=== PATIENT | female | born 1965 | race Caucasian/White ===

== ENCOUNTER 2024-06-09 07:31 | Emergency (ER) | payer OTHER ==
--- OUTSIDE RECORDS SUMMARY | 2024-06-09 07:35 | XMS REPORT | Continuity of Care Document ---
Author Name Unknown Address [address] [facility] [address] [place] [address] [facility] thconnect Address [address] [facility] [address] [place] [address] Care Team Providers Care Pest Control Applicator Name Role Phone Pcp, Patient Does Not Have A Primary Care Physic myrna FOG_A_Provider Attending Clinician Unavailable Toy Saul Attending Clinician Unavailable Cherrie Quintana MD Attending Clinician [phone] CHERRIE QUINTANA Attending Clinician Unavailabl e Doctor Unassigned, [place] Attending Clinician U navailable FOG_A_Provider Admitting Clinician Unavailable Toy Saul Admitting Clinician Unavailable Payers Payer Name Policy Type Policy Number Effective Date Expirati on Date Source [facility] ([facility]) [id number] 2022 00:00:00 Problems Condition Name Condition Details Condition Category Status Onset Date Resolution Date Last Treatment Date Treating Clinician Comments Source Anxiety Anxiety Problem Active 2023-08 0-08 00:00: 00 [facility] Hip joint prosthesis present Hip Joint Prosthesis Present Problem Active 3-13 00:00: 00 [facility] Osteoarthr itis of left hip joint Osteoarthr itis of Left Hip Joint Problem Active 2021-08 1-10 00:00: 00 [facility] Pain of left hip joint Pain of Left Hip Joint Problem Active 2021-08 00:00: 00 [facility] No known active problems No known active problems Disease [facility] Allergies, Adverse Reactions, Alerts Allergy Name Allergy Type Status Severity Reaction(s) Onset Date Inactive Date Treating Clinician Comments Source No Known Allergie s DA Active U 09-09 00:00: 00 [facility] Tramadol Allergy to substanc e Active [facility] NO KNOWN ALLERGIE S Drug Class Active [facility] Social History Social Habit Start Date Stop Date Quantity Comments Source Exposure to SARS-CoV-2 (event) 2022-06-22 00:00:00 2022-07-02 09:47:00 Not sure [facility] Sex Assigned At 1965 00:00:00 1965 00:00:00 [facility] Smoking Status Start Date Stop Date Source Former Smoker [facility] Tobacco smoking consumption unknown [facility] Medications Ordered Medication Name Filled Medication Name Start Date Stop Date Current Medication? Ordering Clinician Indication Dosage Frequency Signature (SIG) Comments Components Source No known medications 2021-08 09:59: 13 No No known medication s [facility] tramadol 50 mg tablet Take 1 tablet(s) EVERY 12 HOURS by oral route as needed for pain. tramadol 50 mg tablet Take 1 tablet(s) EVERY 12 HOURS by oral route as needed for pain. No tramadol 50 mg tablet Take 1 tablet(s) EVERY 12 HOURS by oral route as needed for pain. [facility] aspirin 81 mg tablet,barbara yed release Take 1 tablet twice a day by oral route. aspirin 81 mg tablet,barbara yed release Take 1 tablet twice a day by oral route. No 1 BID aspirin 81 mg tablet,del ayed release Take 1 tablet twice a day by oral route. [facility] diclofenac sodium 75 mg tablet,barbara yed release Take one tablet by mouth twice a day after finishing 5 days of Ketorolac diclofenac sodium 75 mg tablet,barbara yed release Take one tablet by mouth twice a day after finishing 5 days of Ketorolac No diclofenac sodium 75 mg tablet,del ayed release Take one tablet by mouth twice a day after finishing 5 days of Ketorolac [facility] doxycycline hyclate 100 mg capsule Take 1 capsule twice a day by oral route for 7 days. doxycycline hyclate 100 mg capsule Take 1 capsule twice a day by oral route for 7 days. No doxycyclin e hyclate 100 mg capsule Take 1 capsule twice a day by oral route for 7 days. [facility] Hibiclens 4 % topical liquid Apply 1 application every day by topical route as directed for 5 days. Hibiclens 4 % topical liquid Apply 1 application every day by topical route as directed for 5 days. No 1applic ation(s ) Q1D Hibiclens 4 % topical liquid Apply 1 applicatio n every day by topical route as directed for 5 days. [facility] ketorolac 10 mg tablet Take 1 tablet every 6 hours by oral route for 5 days. ketorolac 10 mg tablet Take 1 tablet every 6 hours by oral route for 5 days. No ketorolac 10 mg tablet Take 1 tablet every 6 hours by oral route for 5 days. [facility] mupirocin 2 % topical ointment APPLY A SMALL AMOUNT TO EACH NOSTRIL DAILY STARTING 5 DAYS PRIOR TO SURGERY mupirocin 2 % topical ointment APPLY A SMALL AMOUNT TO EACH NOSTRIL DAILY STARTING 5 DAYS PRIOR TO SURGERY No mupirocin 2 % topical ointment APPLY A SMALL AMOUNT TO EACH NOSTRIL DAILY STARTING 5 DAYS PRIOR TO SURGERY [facility] Aleve Alewillie No [facility] tizanidine 4 mg tablet Take 1 tablet(s) EVERY 8 HOURS by oral route, as needed for muscle spasm tizanidine 4 mg tablet Take 1 tablet(s) EVERY 8 HOURS by oral route, as needed for muscle spasm No tizanidine 4 mg tablet Take 1 tablet(s) EVERY 8 HOURS by oral route, as needed for muscle spasm [facility] tramadol 50 mg tablet Take 1 tablet(s) EVERY 6-8 HOURS by oral route as needed for pain. tramadol 50 mg tablet Take 1 tablet(s) EVERY 6-8 HOURS by oral route as needed for pain. No tramadol 50 mg tablet Take 1 tablet(s) EVERY 6-8 HOURS by oral route as needed for pain. [facility] tizanidine 4 mg tablet Take 1 tablet(s) EVERY 8 HOURS by oral route, as needed for muscle spasm tizanidine 4 mg tablet Take 1 tablet(s) EVERY 8 HOURS by oral route, as needed for muscle spasm No tizanidine 4 mg tablet Take 1 tablet(s) EVERY 8 HOURS by oral route, as needed for muscle spasm [facility] tramadol 50 mg tablet Take 1 tablet(s) EVERY 12 HOURS by oral route as needed for pain. tramadol 50 mg tablet Take 1 tablet(s) EVERY 12 HOURS by oral route as needed for pain. No tramadol 50 mg tablet Take 1 tablet(s) EVERY 12 HOURS by oral route as needed for pain. [facility] gabapentin 300 mg capsule gabapentin 300 mg capsule No gabapentin 300 mg capsule [facility] Advil Advil No Advil [facility] tramadol 50 mg tablet Take 1 tablet(s) EVERY 8-12 HOURS by oral route as needed for pain. tramadol 50 mg tablet Take 1 tablet(s) EVERY 8-12 HOURS by oral route as needed for pain. No tramadol 50 mg tablet Take 1 tablet(s) EVERY 8-12 HOURS by oral route as needed for pain. [facility] Hibiclens 4 % topical liquid Apply 1 application every day by topical route as directed for 5 days. Hibiclens 4 % topical liquid Apply 1 application every day by topical route as directed for 5 days. No 1applic ation(s ) Q1D Hibiclens 4 % topical liquid Apply 1 applicatio n every day by topical route as directed for 5 days. [facility] mupirocin 2 % topical ointment APPLY A SMALL AMOUNT TO EACH NOSTRIL DAILY STARTING 5 DAYS PRIOR TO SURGERY mupirocin 2 % topical ointment APPLY A SMALL AMOUNT TO EACH NOSTRIL DAILY STARTING 5 DAYS PRIOR TO SURGERY No mupirocin 2 % topical ointment APPLY A SMALL AMOUNT TO EACH NOSTRIL DAILY STARTING 5 DAYS PRIOR TO SURGERY [facility] Vital Signs Vital Name Observation Time Observation Value Comments S ource BP Systolic 2024-06-06 00:00:00 134 mm[Hg] [facility] BMI (Body Mass Index) 2024-06-06 00:00:00 26.7 kg/m2 [facility] Body Weight 2024-06-06 00:00:00 160.4 [lb_av] [facility] BP Diastolic 2024-06-06 00:00:00 74 mm[Hg] [facility] Height 2024-06-06 00:00:00 65 [in_i] [facility] Systolic blood pressure 2022-07-02 15:06:00 130 mm[Hg] [facility] Diastolic blood pressure 2022-07-02 15:06:00 87 mm[Hg] [facility] Heart rate 2022-07-02 15:06:00 99 /min [facility] Oxygen saturation in Arterial blood by Pulse oximetry 2022-07-02 15:06:00 95 /min [facility] Body height 2022-07-02 14:58:00 162.6 cm [facility] Body weight 2022-07-02 14:58:00 84.46 kg [facility] BMI 2022-07-02 14:58:00 31.96 kg/m2 [facility] Procedures Procedure Date / Time Performed Performing Clinician Source CT, chest + abdomen + pelvis, w/wo contrast 2024-06-06 00:00:00 [facility] RADEX PELVIS 1/2 VIEWS 2022-11-10 00:00:00 [facility] Total Replacement of Left [facility]22-08-30 [facility] 2022-07-09 00:00:00 [facility] Total Replacement of Left Hip Joint 1922-09-15 00:00:00 [facility] Ankle Surgery [facility] Foot Surgery [facility] Hand Surgery [facility] Tonsillectomy [facility] Vascular Surgery [facility] Encounters Start Date/Time End Date/Time Encounter Type Admission Type Attending Clinicians Care Facility Care Department Encounter ID Source 2024-06-06 00:00:00 2024-06-06 00:00:00 SUMIT Alba: [address], [place] [address] , Ph. [facility] [id number] [facility] 2022-11-10 00:00:00 2022-11-10 00:00:00 Diane Quiroz PA: [address] [place] [address] , Ph. [phone] [facility] [place] [facility] [place] [id number] [facility] 2022-11-06 00:00:00 2022-11-06 00:00:00 Outpatient FOG_A_Provi hang [facility] AOSM [id number] [facility] 2022-11-06 00:00:00 2022-11-06 00:00:00 Outpatient FOG_A_Provi hang AOSM AOSM [id number] [facility] 2022-09-28 00:00:00 2022-09-28 00:00:00 Outpatient FOG_A_Provi hang AOSM AOSM [id number] [facility] 2022-09-28 00:00:00 2022-09-28 00:00:00 Toy Saul MD: [id number] [place] [address] , Ph. [phone] [facility] [place] [facility] [place] [id number] [facility] 2022-09-15 07:08:00 2022-09-16 14:29:00 Inpatient Toy Hayward [facility] [id number] [facility] 2022-09-11 00:00:00 2022-09-11 00:00:00 Outpatient FOG_A_Provi hang AOSM AOSM [id number] [facility] 2022-09-11 00:00:00 2022-09-11 00:00:00 Outpatient FOG_A_Provi hang AOSM AOSM [id number] [facility] 2022-09-11 00:00:00 2022-09-11 00:00:00 Outpatient FOG_A_Provi hang AOSM AOSM [id number] [facility] 2022-09-09 15:55:00 2022-09-09 15:55:00 Outpatient Toy Saul [facility] [id number] [facility] 2022-08-17 00:00:00 2022-08-17 00:00:00 Outpatient FOG_A_Provi hang AOSM AOSM [id number] [facility] 2022-08-17 00:00:00 2022-08-17 00:00:00 Outpatient FOG_A_Provi hang AOSM AOSM [id number] [facility] 2022-07-31 00:00:00 2022-07-31 00:00:00 Outpatient FOG_A_Provi hang AOSM AOSM [id number] [facility] 2022-07-09 00:00:00 2022-07-09 00:00:00 Outpatient FOG_A_Provi hang AOSM AOSM [id number] [facility] 2022-07-09 00:00:00 2022-07-09 00:00:00 SUMIT Lim: [address] [facility] [address], [place] [address] , Ph. [phone] [facility] [place] [facility] [place] [id number] [facility] 2022-07-06 00:00:00 2022-07-06 00:00:00 Outpatient FOG_A_Provi hang AOSM AOSM [id number] [facility] 2022-07-02 10:00:00 2022-07-02 12:31:57 Office Visit Cherrie Quintana [facility] 1..840.114 [id number] [facility] 2022-07-02 10:00:00 2022-07-02 12:31:57 Outpatient R CHERRIE QUINTANA [facility] [id number] [facility] 2022-07-02 00:00:00 2022-07-02 00:00:00 Letter (Out) Doctor Unassigned, [place] [facility] 1..840.114 [id number] [facility] Results Test Description Test Time Test Comments Results Result Co mments Source SPECIMEN COMMENT: POD #1HGB [id number] 06:23:00* Test Item Value Reference Range Interpretation Comme nts HEMOGLOBIN (test code = HGB) 10.5 g/dL 12-16 L HEMATOCRIT (test code = HCT) 31.7 % 37-47 L SPECIMEN COMMENT: POD #1Hemoglobin and Hematocrit panel - [id number] 02:36:00* Test Item Value Reference Range Interpretation Comme nts hemoglobin (test code = hemoglobin) 10.5 g/dL 12-16 L hematocrit (test code = hematocrit) 31.7 % 37-47 L performing lab: (test code = performing lab:) [facility] metabolic [id number] 02:36:00* Test Item Value Reference Range Interpretation Comme nts sodium (test code = sodium) 138 mmol/L 136-145 potassium (test code = potassium) 4.6 mmol/L 3.5-5.1 chloride (test code = chloride) 101.0 mmol/L 98-107 carbon dioxide (test code = carbon dioxide) 28.3 mmol/L 21-32 glucose (test code = glucose) 154 mg/dL 70-110 H blood urea nitrogen (test co de = blood urea nitrogen) 11 mg/dL 7-18 glomerular filtration rate ( test code = glomerular filtration rate) 86.1 >60 creatinine (test code = creatinine) 0.79 mg/dL 0.55-1.30 calcium (test code = calcium) 8.3 mg/dL 8.2-10.1 performing lab: (test code = performing lab:) [facility]- XR PELVIS 1/2 [id number] 16:35:00 [facility] 1965 Sex: F Patient Name: CECI VIZCAINO SAVANNAH Unit No: [id number] EXAMS: CPT CODE: [id number] XR PELVIS 1/2 VIEWS 84846 INTRAOPERATIVE LEG LENGTH FILM COMMENT: COMPARISON: No prior exams available. In progress left hip replacement is noted. AP portable left hip COMMENT: The patient is status post joint replacement which is articulating normally. at 1635 Reported and signed by: Adi Hernandez MD CC: Toy Saul MD Technologist: JONG JARA ARRT Transcribed D/ (4497) BrynnJCL [facility] NAME[facility] [address] [facility] PHYS: Toy Daniels MD : 1965 AGE: 57 SEX: F [place], [place] [address] LOC: Y.324 A PHONE #: [phone] EXAM DATE: 09/15/2022 STATUS: ADM IN FAX #: [phone] RAD #: D/C DT PAGE 1 Signed Report Patient Name: CECI VIZCAINO SAVANNAH Unit No: [id number] EXAMS: CPT CODE: [id number] XR PELVIS 1/2 VIEWS 69402 (Continued) Orig Print D/T: S: 09/15/2022 (1639) [facility] NAME: CECI VIZCAINO SAVANNAH [address] [facility] PHYS: Toy Daniels MD : 1965 AGE: 57 SEX: F [place], [place] [address] LOC: Y.324 A PHONE#: [phone] EXAM DATE: 09/15/2022 STATUS: ADM IN FAX #: [phone] RAD #: D/C DT PAGE 2 Signed Report- XR PELVIS 1/2 VIEWS 2022-09-15 16:35:00 [facility] 1965 Sex: F Patient Name: CECI VIZCAINO SAVANNAH Unit No: [id number] EXAMS: CPT CODE: [id number] XR PELVIS 1/2 VIEWS 82445 INTRAOPERATIVE LEG LENGTH FILM COMMENT: COMPARISON: No prior exams available. In progress left hip replacement is noted. AP portable left hip COMMENT: The patient is status post joint replacement whichis articulating normally. at 1635 Reported and signed by: Adi Hernandez MD CC: Toy Saul MD Technologist: JONG JARA ARRT Transcribed D/ (9373) Dora [facility] NAME: QUANTICOCECI SAVANNAH [address] [place] [address] PHYS: Toy Daniels MD : 1965 AGE: 57 SEX: F [place] [address] LOC: Y.324 A PHONE #: [phone] EXAM DATE: 09/15/2022 STATUS: ADM IN FAX #: [phone] RAD #: D/C DT PAGE 1 Signed Report Patient Name: CECI VIZCAINO Unit No: [id number] EXAMS: CPT CODE: [id number] XR PELVIS 1/2 VIEWS 52702 (Continued) Orig Print D/T: S: 09/15/2022 (1639) [facility] NAME: CECI VIZCAINO SAVANNAH [address] [facility] PHYS: Toy Dnaiels MD : 1965 AGE: 57 SEX: F [place], [place] [address] LOC: Y.324 A PHONE#: [phone] EXAM DATE: 09/15/2022 STATUS: ADM IN FAX #: [phone] RAD #: D/C DT PAGE 2 Signed ReportCOMPREHENSIVE METABOLIC [id number] 11:53:00* Test Item Value Reference Range Interpretation Comme nts SODIUM (test code = NA) 140 mmol/L 136-145 N POTASSIUM (test code = K) 4.6 mmol/L 3.5-5.1 N CHLORIDE (test code = CL) 102.0 mmol/L 98-107 N CARBON DIOXIDE (test code = CO2) 26.1 mmol/L 21-32 N GLUCOSE (test code = GLU) 107 mg/dL 70-110 N BLOOD UREA NITROGEN (test code = BUN) 12 mg/dL 7-18 N GLOMERULAR FILTRATION RATE (test code = GFR) 97.9 >60 The Glomerular Filtration Rate is a calculated parameterbased on serum Creatinine, patient age and sex. GFR valuesless than 60 mL/min/1.73 square meters are indicative ofChronic Kidney Disease. Values less than 15 mL/min/1.73square meters indicate Kidney failure. The calculation forGFR is based on the CKD-EPI (2020) calculation. This formulais race indifferent and is the recommended formula for GFRby the National Kidney Foundation for Adults.The GFR will not calculate if the sex is unknown or if thepatient's age is <18 years. CREATININE (test code = CREAT) 0.71 mg/dL 0.55-1.30 N TOTAL PROTEIN (test code = PROT) 7.2 g/dL 6.4-8.2 N ALBUMIN (test code = ALB) 3.9 g/dL 3.4-5.0 N GLOBULIN (test code = GLOB) 3.3 g/dL 2.2-4.2 N ALBUMIN/GLOBULIN RATIO (test code = A/G) 1.2 0.7-2.0 N CALCIUM (test code = CA) 8.9 mg/dL 8.2-10.1 N BILIRUBIN TOTAL (test code = BILT) 0.20 mg/dL 0.2-1.00 N SGOT/AST (test code = AST) 23.0 U/L 15-37 N SGPT/ALT (test code = ALT) 34.0 U/L 12-78 N ALKALINE PHOSPHATASE TOTAL (test code = ALKP) 59 U/L 46-116 N CBC W/AUTO [id number] 11:45:00* Test Item Value Reference Range Interpretation Comme nts WHITE BLOOD CELL (test code = WBC) 10.2 K/mm3 5.8-11.0 N RED BLOOD CELL (test code = RBC) 4.85 M/mm3 4.2-5.4 N HEMOGLOBIN (test code = HGB) 13.8 g/dL 12-16 N HEMATOCRIT (test code = HCT) 41.5 % 37-47 N MEAN CELL VOLUME (test code = MCV) 86 fL 80-98 N MEAN CELL HGB (test code = MCH) 28.5 pg 27-34 N MEAN CELL HGB CONCENTRATION (test code = MCHC) 33.3 g/dL 30.8-34.1 N RED CELL DISTRIBUTION WIDTH (test code = RDW) 14.2 % 11-16 N PLT (test code = PLT) 456 K/mm3 130-400 H MEAN PLATELET VOLUME (test c ode = MPV) 10.1 fL 8.9-12.1 N NEUTROPHIL % (test code = NT%) 50.6 % 45-70 N LYMPHOCYTE % (test code = LY%) 34.8 % 20-40 N MONOCYTE % (test code = MO%) 10.7 % 3-10 H EOSINOPHIL % (test code = EO%) 2.5 % 1-5 N BASOPHIL % (test code = BA%) 0.5 % 0.0-1.1 N NEUTROPHIL # (test code = NT#) 5.14 K/mm3 2.00-7.50 N LYMPHOCYTE # (test code = LY#) 3.53 K/mm3 1.50-4.00 N MONOCYTE # (test code = MO#) 1.09 K/mm3 0.2-0.8 H EOSINOPHIL # (test code = EO#) 0.25 K/mm3 0.04-0.4 N BASOPHIL # (test code = BA#) 0.05 K/mm3 0.02-0.10 N MANUAL DIFF REQUIRED (test c ode = MDIFF) NO MANUAL DIFF NUCLEATED RED BLOOD CELL (te st code = NRBC) 0 % 0-0 N CBC W Auto Differential panel - [id number] 10:41:00* Test Item Value Reference Range Interpretation Comme nts white blood cell (test code = white blood cell) 10.2 K/mm3 5.8-11.0 red blood cell (test code = red blood cell) 4.85 M/mm3 4.2-5.4 hemoglobin (test code = hemoglobin) 13.8 g/dL 12-16 hematocrit (test code = hematocrit) 41.5 % 37-47 mean cell volume (test code = mean cell volume) 86 fL 80-98 mean cell HGB (test code = m [place] cell HGB) 28.5 pg 27-34 mean cell HGB concentration (test code = mean cell HGB concentration) 33.3 g/dL 30.8-34.1 red cell distribution width (test code = red cell distribution width) 14.2 % 11-16 plt (test code = plt) 456 K/mm3 130-400 H mean platelet volume (test c ode = mean platelet volume) 10.1 fL 8.9-12.1 neutrophil % (test code = neutrophil %) 50.6 % 45-70 lymphocyte % (test code = lymphocyte %) 34.8 % 20-40 monocyte % (test code = mono cyte %) 10.7 % 3-10 H eosinophil % (test code = eosinophil %) 2.5 % 1-5 basophil % (test code = baso deepti %) 0.5 % 0.0-1.1 neutrophil # (test code = neutrophil #) 5.14 K/mm3 2.00-7.50 lymphocyte # (test code = lymphocyte #) 3.53 K/mm3 1.50-4.00 monocyte # (test code = mono cyte #) 1.09 K/mm3 0.2-0.8 H eosinophil # (test code = eosinophil #) 0.25 K/mm3 0.04-0.4 basophil # (test code = baso deepti #) 0.05 K/mm3 0.02-0.10 manual diff required (test c ode = manual diff required) no manual diff nucleated red blood cell (te st code = nucleated red blood cell) 0 % 0-0 performing lab: (test code = performing lab:) [facility] - Serum or [id number] 10:41:00* Test Item Value Reference Range Interpretation Comme nts sodium (test code = sodium) 140 mmol/L 136-145 potassium (test code = potassium) 4.6 mmol/L 3.5-5.1 chloride (test code = chloride) 102.0 mmol/L 98-107 carbon dioxide (test code = carbon dioxide) 26.1 mmol/L 21-32 glucose (test code = glucose) 107 mg/dL 70-110 blood urea nitrogen (test co de = blood urea nitrogen) 12 mg/dL 7-18 glomerular filtration rate ( test code = glomerular filtration rate) 97.9 >60 creatinine (test code = creatinine) 0.71 mg/dL 0.55-1.30 total protein (test code = t otal protein) 7.2 g/dL 6.4-8.2 albumin (test code = albumin) 3.9 g/dL 3.4-5.0 globulin (test code = globulin) 3.3 g/dL 2.2-4.2 albumin/globulin ratio (test code = albumin/globulin ratio) 1.2 0.7-2.0 calcium (test code = calcium) 8.9 mg/dL 8.2-10.1 bilirubin total (test code = bilirubin total) 0.20 mg/dL 0.2-1.00 SGOT/AST (test code = SGOT/AST) 23.0 U/L 15-37 SGPT/ALT (test code = SGPT/ALT) 34.0 U/L 12-78 alkaline phosphatase total ( test code = alkaline phosphatase total) 59 U/L 46-116 performing lab: (test code = performing lab:) [facility] Center[facility] resistant Staphylococcus aureus [Presence] in Specimen by Organism specific [id number] 10:41:00* Test Item Value Reference Range Interpretation Comme nts MRSA surveillance screen (te st code = MRSA surveillance screen) see below performing lab: (test code = performing lab:) [facility] PCR surveillance [id number] 10:41:00 * Test Item Value Reference Range Interpretation Comme nts mssa PCR surveillance screen (test code = mssa PCR surveillance screen) see below performing lab: (test code = performing lab:) [facility] Notes Date/Time Note Provider Source 2022-09-16 09:17:00 [facility] Clinical Note REPORT#:[id number] REPORT STATUS: Signed DATE:09/16/22 TIME: 916 PATIENT: CECI VIZCAINO WILLIAMSON UNIT #: [id number] [facility] AGE: 57 SEX: F ATTEND: Toy Saul MD ADM AUTHOR: Jah Sorensen MD * ALL edits or amendments must be made on the electronic/computer document * Clinical Note Note: [facility] Jah Franz M.D. (cell text [phone]) Assessment/Plan 1.) Anemia of acute blood loss- .Hgb 10.5, asymptomatic. 2.) S/p Left ROSALIO- .acute multi-modal pain control and followup. Anticoagulation as per Dr. Saul. 3.) OsteoArthritis- .continue on Rx. * OK for DISCHARGE per Internal Medicine. Prior Events/Overnight: Uneventful. Chief Complaint: No significant complaints. Objective Vital Signs Date Temp Pulse Resp B/P B/P Mean Pulse Ox FiO2 09/15-09/16 96.3-98.6 77-101 12-20 103-153/56-84 76.9-99.8 94-100 24-32 Gen: Alert, oriented, in mild discomfort Neck: No Masses, No Thyromegaly- CV: Regular Rate Rhythm / Edema- no significant Resp: Clear To Ascultation / Normal Respiratory Effort ABD: NonTender / NonDistended MS/Skin: No sign of compartment syndrome / +ankle DF/PF Other: thigh soft, drain out Labs/X-ray: Laboratory Tests: 09/166 Chemistry Sodium (136 - 145 mmol/L) 138 Potassium (3.5 - 5.1 mmol/L) 4.6 Chloride (98 - 107 mmol/L) 101.0 Carbon Dioxide (21 - 32 mmol/L) 28.3 BUN (7 - 18 mg/dL) 11 Creatinine (0.55 - 1.30 mg/dL) 0.79 Glomerular Filtr Rate (>60) 86.1 Glucose (70 - 110 mg/dL) 154 H Calcium (8.2 - 10.1 mg/dL) 8.3 Hematology Hgb (12 - 16 g/dL) 10.5 L Hct (37 - 47 %) 31.7 L Jah Franz M.D. at 1052 RPT #:[id number] END OF RE[facility]22-[facility] 08:48:00 [facility]) Discharge Summary REPORT#:[id number] REPORT STATUS: Signed DATE:09/16/22 TIME: 0848 PATIENT: CECI VIZCAINO [place] UNIT #: [id number] ROOM/BED: [address] : 63 AGE: 57 SEX: F ATTEND: Toy Saul MD ADM AUTHOR: Diane Quiroz * ALL edits or amendments must be made on the electronic/computer document * General Information Date of admission: Observation Start Date: 09/15/22 Date of admission: 09/15/22 Discharge date: 09/16/22 Admission diagnosis: Left hip osteoarthritis Discharge diagnosis: same Hospital course: The patient underwent the procedure without incident. Findings were significant for degenerative disease of the hip. The patient was hemodynamically and medically monitored during the post op period. Anticoagulation was instituted for post op DVT prophylaxis. The patient was progressively able to tolerate PO pain medications and the appropriate diet. PT was instituted, with a progressive ability to ambulate and performed exercises. The patient was eventually deemed stable and safe for discharge. Despite factors which projected a longer hospital stay, the patient fulfilled criteria for earlier than expected discharge, including control of pain, early mobilization with PT and stable hemodynamic status. At discharge the patient was comfortable with a controlled pain level. There were no chest or abdominal symptoms present. Discharge physical exam demonstrated stable vitals and no acute distress. The patient had an intact dressing with no significant drainage and no calf tenderness. There were no neurologic or vascular deficits or changes from the preop states. Consultants: internal medicine Pt. condition on discharge: stable Allergies: Allergies: No Known Allergies (Coded, 09/09/22) Med Rec Med Rec Discharge meds: Stop taking the following medications: IBUPROFEN (ADVIL) 200 MG TAB 200 MILLIGRAM ORAL EVERY 6 HOURS NEEDED. as needed for PAIN Continue taking these medications: ASPIRIN (ASPIRIN) 81 MG TAB.CHEW 81 MILLIGRAM ORAL DAILY. ACETAMINOPHEN (TYLENOL) 325 MG TAB 325 MILLIGRAM ORAL EVERY 6 HOURS NEEDED. as needed for PAIN MULTIVITAMIN (MULTIPLE VITAMIN) 1 TAB TAB 1 TABLET ORAL DAILY. GABAPENTIN (NEURONTIN) 300 MG CAP 300 MILLIGRAM ORAL THREE TIMES A DAY. as needed for SPASM [CBD OIL] 1,000 MILLIGRAM ORAL EVERY OTHER DAY Treatments Procedures Treatments Procedures: Procedure: Left total hip arthroplasty Lab: Chemistry last 24 hrs: 09/16 0236 Chemistry Sodium (136 - 145 mmol/L) 138 Potassium (3.5 - 5.1 mmol/L) 4.6 Chloride (98 - 107 mmol/L) 101.0 BUN (7 - 18 mg/dL) 11 Creatinine (0.55 - 1.30 mg/dL) 0.79 Glucose (70 - 110 mg/dL) 154 H Hematology last 24 hrs: 09/16 0236 Hematology Hgb (12 - 16 g/dL) 10.5 L Hct (37 - 47 %) 31.7 L Discharge Instructions PCP )( Discharge to: Home/Self Care Discharge Instructions Additional Discharge Routines: Attending Follow-Up, Wound/Dressing Care )( Diet: Resume Home Diet/Feeds )( Weight monitoring: Not Required )( Activity: As Tolerated )( Wound/dressing care: Do not submerge incision, Leave dressing in place, OK to shower tomorrow Prescriptions: e-prescribe Rx drug database reviewed: yes Follow-up Appointments Attending Physician: Attending Physician: Toy Saul MD Attending physician follow up timeframe: In 1-2 weeks at 0849 at 1159 [facility] [place] #:[id number] END OF REPORT [facility] 2022-09-15 17:07:00 [facility] ([facility]) Clinical Note REPORT#:[id number] REPORT STATUS: Signed DATE:09/15/22 TIME: 1707 PATIENT: CECI VIZCAINO WILLIAMSON UNIT #: [id number] ROOM/BED: [address] : 63 AGE: 57 SEX: F ATTEND: Toy Saul MD ADM AUTHOR: Jah Sorensen MD * ALL edits or amendments must be made on the electronic/computer document * Clinical Note Note: [facility] Jah Franz MD (cell text [phone]) Internal Medicine Consult at request of : Dr. Toy Saul. Chief Complaint: .hip pain HPI: 57yo F is now s/p Left Total Hip Arthroplasty (ROSALIO) by Dr. Saul. Ms. Vizcaino relates years of progressive left hip pain (recently severe), worse with activity, and popping crunchy with restricted motion at times in quality. She has failed conservative management. Comorbidities: see below. PmHx: .OsteoArthritis, back pain ALLERGY: Allergies: No Known Allergies (Coded, 09/09/22) Home Medications: Home Medications: ASPIRIN 81 MG PO DAILY IBUPROFEN (ADVIL) 200 MG PO Q6H PRN PRN PAIN ACETAMINOPHEN (TYLENOL) 325 MG PO Q6H PRN PRN PAIN MULTIVITAMIN (MULTIPLE VITAMIN) 1 TAB PO DAILY GABAPENTIN (NEURONTIN) 300 MG PO TID PRN SPASM [CBD OIL] 1,000 MG PO QODAY SgHx: .Ankle, foot and hand surgery SHx: Tob: quit 09/2019 FHx: .No significant hx of DVT/PE. Alcohol: ocassional Drugs: none Lives: with . . Vitals: Vital Signs: Date Time Temp Pulse Resp B/P B/P Pulse O2 O2 Flow FiO2 Mean Ox Delivery Rate 09/15 1615 98 Nasal 1 24 cannula 09/15 1522 98.1 77 16 116/74 88.4 98 Nasal cannula 09/15 1220 100 Nasal 3 32 cannula 09/15 1206 96.3 77 14 117/78 91.2 100 Nasal cannula 09/15 1145 78 20 109/57 100 Nasal 3 cannula 09/15 1130 87 20 115/56 100 Nasal 3 cannula 09/15 1116 Nasal 3 cannula 09/15 1115 83 12 125/68 98 Nasal 3 cannula 09/15 1102 Simple mask 09/15 1100 82 16 139/75 98 Room air 09/15 1050 97.3 101 14 153/72 98 Simple mask 09/15 0730 98.1 83 20 136/71 94 Room air Gen: Alert, in mild discomfort. EYE: Nl lids conjunctiva. ENT: Nl ears Nose, nl lips,. Neck: Supple, nl thyroid, No masses. CV: Regular Rate Rhythm, no heave or significant murmur. Edema- none RESP: Clear to Auscultation, normal Respiratory effort. ABD: Soft, NonDistended,. LYM: No significant cervical lymphadenopathy. MS: No sign of compartment syndrome, thigh soft, hip dressing dry, drain in place NEURO: Nonfocal, grossly normal sensation of LE, +Ankle DF/PF . . Preop Labs(09/09/22): CBC:. Hgb 13.8, Plt 456, CHEM: Na 140, K 4.6, Cr 0.71 (eGFR 98%), . Ekg: NSR, nonspecific TW abnormaility . (medium to high risk of complications or morbidity) (major surgery) (IV sedative, meds) . Assessment Plan 1.) Anemia of Acute Blood Loss- .will recheck tomorrow. 2.) S/p Left ROSALIO- .acute multi-modal pain control and followup. Anticoagulation as per Dr. Saul. 3.) OsteoArthritis- .continue on Rx. . Jah Franz M.D. Thanks! . . . . . G8417 BMI documented as above normal parameters and a f/u plan is documented G9903 - Patient screened for tobacco use AND identified as a tobacco non-user 1123F - ACP disscussion - default code status while at [facility]. at 2114 RPT #:[id number] END OF REPORT [facility] 2022-09-15 10:26:00 [id number] [facility] [address] [place] [id number] PATIENT NAME: CECI VIZCAINO ADMIT DATE: 09/15/22 ACCOUNT NO: [id number] ROOM NO: Y.324 AGE: 57 REPORT TYPE: OPERATIVE REPORT SEX: F ADMITTING PHYSICIAN:Toy Saul MD ATTENDING PHYSICIAN:Toy Saul MD OPERATION DATE: 09/15/2022 PREOPERATIVE DIAGNOSIS: Left hip osteoarthritis. POSTOPERATIVE DIAGNOSIS: Left hip osteoarthritis, M17.12. OPERATIVE PROCEDURES PERFORMED: 1. Computer-assisted imageless left total hip arthroplasty, 63098. 2. 07441. IMPLANTS UTILIZED: DePuy total hip system, size 52 mm Gription acetabular cup, 1-08/31 neck, both the acetabular and femoral components were pressfit. ANESTHESIA: General. ESTIMATED BLOOD LOSS: Less than 30 mL. SURGEON: Toy Saul MD STRUCTURAL DESIGN ENGINEER: SUMIT Quiroz. OPERATIVE FINDINGS: As above. SURGICAL SPECIMENS SENT: None. CLINICAL INDICATIONS: Ms. Vizcaino is a pleasant 57-year-old female from [place], [place], who has been having progressive and severe pain above the left hip for the past 10 years. Pain is currently disabling in nature. Her pain has been refractory to extensive nonoperative intervention. Due to her severe disability and lack of response to nonoperative treatment, she is admitted for ____. PROCEDURE IN DETAIL: Ms. Vizcaino was brought in ____ she was placed in supine position on the OR table. Routine monitors were established. General anesthesia was delivered. After satisfactory induction of general anesthesia, the patient was placed in the right lateral decubitus position per Ms. Quiroz and pulses were checked and noted to be patent x4. The left hip was then circumferentially prepped and draped in the usual sterile fashion per Ms. Quiroz. A standard anterolateral Dooley approach was performed. Iliotibial band divided in line for the skin incision. The abductors were taken sharply off the insertion of the greater trochanter. An anterior capsulotomy was performed. Femoral head was dislocated anteriorly. The femoral neck was resected 12 mm proximal to the lesser trochanter as per preoperative templating. PATIENT NAME: CECI VIZCAINO The labrum was excised circumferentially from the acetabulum and circumferential acetabular retractors were placed. Sequential reaming was performed to a size 51 mm reamer. Two percutaneous pins were then placed in the superior aspect of the crest and the OrthAlign guide was placed and the hip was registered. Utilizing realtime computer guidance, the acetabular component was placed in the 40 degrees of abduction and 15 degrees of anteversion. A neutral polyethylene insert was then placed into the cup. ____ reduced with a 36 mm head, 1-1/2 neck. Restorationism of offset and leg lengths were noted clinically. No impingement was seen. Intraoperative x-rays confirmed orthodoxy of leg length and offset with optimal positioning of the components. The hip was then dislocated and the broach was removed and the formal size 4 Actis high offset femoral stem was then placed ____ +1.5 neck. The hip was once again reduced. Copious antibiotic lavage was performed in the surgical site. The abductors were meticulously repaired utilizing #5 Ethibond suture incorporating a transosseous suture technique. Medium Hemovac drain was then placed deep to the iliotibial band. The iliotibial band was closed in a watertight fashion with a dypojc-ts-mmhde #5 Ethibond suture. Skin closure was performed with interrupted 0 Vicryl followed by 2-0 Vicryl followed by Ethicon Prineo dressing. Postoperative anesthetic injection was performed by Ms. Quiroz. Sterile dressing was applied by Ms. Quiroz. Ms. Vizcaino was then extubated and taken to recovery room awake and alert without any anesthetic or operative complications. At the end of the case, sponge and needle counts were correct x2. During the procedure, Ms. Quiroz was invaluable in positioning the patient along with preparation and draping of the extremity. She was also vital providing surgical exposure throughout the procedure, which greatly aided in performance of the procedure expeditiously as well as protection of the neurovascular structures. Finally, she was responsible for postoperative anesthetic injection as well as closure of the postoperative incision and application of postoperative dressing. Utilizing the OrthAlign guidance system can dramatically reduce intraoperative and postoperative blood loss due to lack of necessity of an intramedullary tunnel and distal femur. Also, several studies have shown that the accuracy of the distal femoral resection has greatly improved over standard intramedullary instrumentation. Dictated By: Toy Saul MD Date Dictated: 09/15/2022 10:26:30 Date Transcribed: 09/15/2022 12:27:00 JUAN CARLOS/ANJU/RODERICK/RODERICK Receipt ID: [id number] Authenticated by Toy Saul MD On 09/16/2022 06:55:04 AM PATIENT NAME: CECI VIZCAINO at 0655 PATIENT NAME: CECI VIZCAINO [facility] 2022-09-15 06:52:00 [facility] ([facility]) Brief Op Note REPORT#:[id number] REPORT STATUS: Signed DATE:09/15/22 TIME: 06 PATIENT: CECI VIZCAINO UNIT #: [id number] ROOM/BED: : 63 AGE: 57 SEX: F ATTEND: Toy Saul MD ADM AUTHOR: Diane Quiroz * ALL edits or amendments must be made on the electronic/computer document * Op/Inv Proc Note - Brief Pre-procedure diagnosis: Left hip osteoarthritis Post-procedure diagnosis: same as pre procedure dx Procedures performed: Left total hip arthroplasty Primary Surgeon: Kg Cardiac Cath Lab Radiology Technologist(s): marcela DIMAS Findings: as above Complications: none Estimated blood loss in ml's: 25cc Specimens removed/altered: none at 0653 at 0700 RPT #:[id number] END OF REPORT [facility] 2022-09-12 14:08:00 [id number] [place] [id number] PATIENT NAME: CECI VIZCAINO ADMIT DATE: ACCOUNT NO: [id number] ROOM NO: AGE: 57 REPORT TYPE: HISTORY AND PHYSICAL SEX: F ADMITTING PHYSICIAN:Toy Saul MD ATTENDING PHYSICIAN:Toy Saul MD ADMISSION DATE: 09/15/2022 00:00:00 ADMITTING DIAGNOSIS: Left hip osteoarthritis, M16.12. HISTORY OF PRESENT ILLNESS: Ms. Vizcaino is a 57-year-old female who has been having progressive and severe pain involving her left hip for the past several years. She is experiencing pain currently on a daily basis. The pain interferes with her daily activities as well as at rest. The pain is not improved despite extensive nonoperative treatment. The clinical as well as radiographic evaluation revealed severe osteoarthritis of the left hip. Due to her progressive disability and lack of response to nonoperative treatment, she is admitted for computer-assisted imageless left total hip arthroplasty. PAST MEDICAL HISTORY: Anxiety and depression. PAST SURGICAL HISTORY: Surgeries include an ankle surgery, foot surgery, hand surgery, tonsillectomy and vascular surgery. FAMILY HISTORY: Noted for arthritis. SOCIAL HISTORY: She has not smoked for the past 5 years. She drinks moderately. ALLERGIES: NO ALLERGIES ARE LISTED. MEDICATIONS: No medications are noted. REVIEW OF SYSTEMS: Negative. PHYSICAL EXAMINATION: VITAL SIGNS: 5 feet 1 inch tall, 83.1 kg. HEENT: Within normal limits. HEART: Regular rate and rhythm, no murmur. CHEST: Clear. ABDOMEN: Benign. BACK: No CVA tenderness. EXTREMITIES: Her leg lengths reveal a 7 mm leg length inequality on the left hip. She has limited and painful motion. Distal neurovascular status is intact. RADIOGRAPHIC EVALUATION: Reveals severe osteoarthritis. PATIENT NAME: CECI VIZCAINO ASSESSMENT: Left hip pain secondary to severe osteoarthritis. SURGICAL PLAN: Will be to proceed with a computer-assisted imageless left total hip arthroplasty. I have gone over at length with Ms. Vizcaino the associated risks involved with this procedure. She understands these risks include, but are not limited to bleeding, transfusion requirement, infection, neurovascular damage, persistent pain, loss of motion, leg length inequality, loosening of the prosthesis requiring possible revision, instability of the prosthesis requiring possible revision, dislocation of the prosthesis, painful scar, persistent limp, deep vein thrombi leading to pulmonary emboli along with complications secondary to anesthesia. In addition, she understands that there are no guarantees or warranties that she will be pain free as a result of the procedure. Finally, she understands that she will receive pressfit fixation of both the acetabular and femoral components and that she will receive a rxeqi-oq-pttmsiqftzvh bearing surface. Ms. Vizcaino accepts these risks and gives informed consent to proceed. Dictated By: Toy Saul MD Date Dictated: 09/12/2022 14:08:50 Date Transcribed: 09/12/2022 15:05:45 RLB/DAYRON/DIT Receipt ID: [id number] Authenticated by Toy Saul MD On 09/14/2022 08:32:31 AM at 0832 PATIENT NAME: CECI VIZCAINO [facility] 2022-09-09 10:47:00 [id number] [place] [id number] PATIENT NAME: CECI VIZCAINO ADMIT DATE: ACCOUNT NO: [id number] ROOM NO: AGE: 57 REPORT TYPE: ELECTROCARDIOGRAM SEX: F ADMITTING PHYSICIAN:Toy Saul MD ATTENDING PHYSICIAN:Toy Saul MD Order: [id number] Test Reason : PRE OP CLEARANCE >50 Test Date/Time Stamp: WedSep 09 2022 10:47:27 Blood Pressure : / mmHG Vent. Rate : 079 BPM Atrial Rate : 079 BPM P-R Int : 156 ms QRS Dur : 078 ms QT Int : 382 ms P-R-T Axes : 055 066 032 degrees QTc Int : 438 ms Normal sinus rhythm Nonspecific ST abnormality Abnormal ECG No previous ECGs available Confirmed by SATISH WELCH MD ([id number]) on 09/10/2022 12:10:50 PM Referred By: Toy Saul Confirmed by:SATISH WELCH MD PATIENT NAME: CECI VIZCAINO [facility]
[2024-06-09] MEDS ORDERED: ONDANSETRON 4 MG/2 ML VIAL ONE (08:39)
[2024-06-09] MEDS ORDERED: FENTANYL CITR 100 MCG/2 ML ONE ×2 (08:39→13:04)
[2024-06-09] MEDS ORDERED: NA CHLORIDE 0.9% 1,000 ML ONE (08:39)
[2024-06-09 08:43] LABS: Absolute Basophils 0.1 K/uL (0-0.5); Absolute Eosinophils 0.6 K/uL (0-0.5); Absolute Lymphocytes (CBC) 2.4 K/uL (0.7-4.9); Absolute Monocytes 1.1 K/uL (0.1-1.3); Absolute Neutrophil 10.1 K/uL (1.8-8.0); Basophils % 0.9 % (0-1.3); Eosinophils % 4.5 % (0-4.4); Hemoglobin 6.5 g/dL (12.0-15.0); Lymphocytes % 16.9 % (15.3-44.8); MCH 17.4 pg (27.0-35.0); MCHC 29.5 g/dL (32.0-36.0); MCV 58.9 fL (80-100); MPV 6.8 fL (7.6-11.3); Monocytes % 7.7 % (3.3-12.3); Platelets 932 thou/uL (152-406); RBC Red Blood Cell Count 3.74 M/uL (3.86-4.86); Red Cell Distribution Width 18.7 % (12.1-15.2)
[2024-06-09 08:51] LABS: PT Prothrombin Time 12.2 SECONDS (9.4-12.5); PTT, Activated Partial Thromb 29.8 SECONDS (24.3-36.9); Protime INR 1.09
--- NOTE | 2024-06-09 08:59 | RAD REPORT ---
EXAMINATION: ONE VIEW CHEST XR CLINICAL INDICATION: COUGH TECHNIQUE: Frontal chest projection is submitted. Examination is limited by patient positioning and t echnique. COMPARISON: No prior exam. FINDINGS: The lungs are well inflated and clear. The heart is upper limit of normal in size. No displaced fract ures identified. Mild lower thoracic dextroscoliosis. IMPRESSION: No acute intrathoracic abnormalities.
[2024-06-09 09:12] LABS: ALT/SGPT < 14 U/L (13-56); AST/SGOT < 10 U/L (15-37); Albumin 2.6 g/dL (3.4-5.0); Albumin/Globulin Ratio 0.6 (1.1-1.8); Alkaline Phosphatase 70 U/L (45-117); Anion Gap 9.2 mEq/L (5.0-15.0); BUN Blood Urea Nitrogen 13 mg/dL (7-18); Bicarbonate 28 mEq/L (21-32); Bilirubin Direct < 0.2 mg/dL (0-0.2); Bilirubin Total 0.2 mg/dL (0.2-1.0); Globulin 4.7 g/dL (2.3-3.5); Glomerular Filtration Rate 101 ml/min (=/>90); Glucose Level 120 mg/dL (74-106); Potassium 4.2 mEq/L (3.5-5.1); Protein, Total 7.3 g/dL (6.4-8.2); Sodium Level 137 mEq/L (136-145); Troponin High Sensitivity 4.2 pg/mL (<58.9)
[2024-06-09 09:25] LABS: Blood Morphology Comment NOTED (NOT SEEN); Hypochromasia 3+; Microcytosis 3+; Platelet Estimate INCR; White Blood Cell Scan OK (OK)
[2024-06-09] MEDS ORDERED: NA CHLORIDE 0.9% 250 ML ONE (10:12)
[2024-06-09 10:29] LABS: Specific Gravity 1.012 (1.005-1.030); Sqamous Epithelial None Seen /HPF (None Seen); Urine Bacteria None Seen /HPF (<20); Urine Bilirubin NEGATIVE (Negative); Urine Blood Negative (Negative); Urine Clarity Clear (Clear); Urine Color Colorless (Yellow); Urine Culture Reflex Order NOT NEEDED; Urine Glucose NEGATIVE (Negative); Urine Ketones NEGATIVE (Negative); Urine Micro Reflex YN NO BILL MICROSCOPIC; Urine Nitrite NEGATIVE (Negative); Urine Protein NEGATIVE (Negative); Urine RBC <5 /HPF (None Seen); Urine Urobilinogen Normal (Normal); Urine WBC <5 /HPF (<5)
--- NOTE | 2024-06-09 11:01 | RAD REPORT ---
EXAM: CT CHEST, ABDOMEN AND PELVIS WITH CONTRAST CLINICAL INDICATION: abd pain, uterine mass;Abd pain TECHNIQUE: CT chest, abdomen and pelvis was performed, following the administration of contrast, as p er department protocol. Axial, sagittal and coronal reconstructions were obtained. One or more of the following dose reduction techniques were used: Automated exposure control, adjustment of the mA a nd/or kV according to patient size, and/or iterative reconstruction. Unless otherwise specified, incidental findings do not require dedicated imaging follow-up. COMPARISON: No prior exam. FINDINGS: LUNGS: No evidence of airspace or interstitial process. No nodules. PLEURA: No pleural effusion. No pneumothorax. MEDIASTINUM AND LYMPH NODES: No mediastinal mass or fluid collection. Normal size mediastinal, hilar, and axillary lymph nodes. OSSEOUS STRUCTURES AND CHEST WALL: Intact. LIVER: The liver demonstrates mild fatty infiltration. No focal lesion or biliary dilatation is seen. PANCREAS: No mass, ductal dilation, or devorah-pancreatic fluid. SPLEEN: Normal size. No focal lesion. ADRENALS: Normal; no mass. KIDNEYS: Normal size and contour. No hydronephrosis. URINARY BLADDER: Normal contour. GASTROINTESTINAL TRACT: No bowel obstruction, free air, significant free fluid or abscess. APPENDIX: Normal appendix. LYMPH NODES: No lymphadenopathy. MUSCULOSKELETAL: Grade 1 anterolisthesis is seen of L4 on 5. OTHER: There is a very large mass in the pelvis/lower abdomen measuring approximately 25 x 15 x 13 cm . Irregular areas of internal necrosis and soft tissue present. Small calcific patient also noted. This appears contiguous with an enlarged cervix. The findings may represent large uterine fibroid how ever uterine leiomyosarcoma cannot be excluded IMPRESSION: There is a very large pelvic mass present measuring up to 25 cm. There is internal necrosis and small calcific lesions present. While this may represent a very large uterine fibroid, leiomyosarcoma is also a consideration. Recommend gynecologic follow-up assessment.
--- NOTE | 2024-06-09 13:18 | ER ---
Nurse's Notes [facility] Name: Janis Adams Age: 59 yrs Sex: Female : 1965 Arrival Date: 06/09/2024 Time: 07:31 Bed 8 Private MD: Diagnosis: Abnormal uterine and vaginal bleeding, unspecified;Uterine Mass, possible cancer;Anemia, unspecified Presentation: 06/09 07:42 Chief complaint: Patient states: Told by doctor to come to ED for low Hgb and elevated ph WBCs. Coronavirus screen: Vaccine status: Patient reports being unvaccinated. Ebola Screen: No symptoms or risks identified at this time. Initial Sepsis Screen: Does the patient meet any 2 criteria? No. Patient's initial sepsis screen is negative. Does the patient have a suspected source of infection? No. Patient's initial sepsis screen is negative. Risk Assessment: Do you want to hurt yourself or someone else? Patient reports no desire to harm self or others. Onset of symptoms was June 09, 2024. 07:42 Method Of Arrival: Ambulatory ph 07:42 Acuity: MIREYA 3 ph Triage Assessment: 07:45 General: Appears in no apparent distress. uncomfortable, Behavior is calm, cooperative. ph Pain: Complains of pain in suprapubic area, right lower quadrant and left lower quadrant Pain radiates to back. Neuro: Level of Consciousness is awake, alert, obeys commands, Oriented to person, place, time, situation. Cardiovascular: Capillary refill < 3 seconds in bilateral fingers Patient's skin is warm and dry. Respiratory: Airway is patent Respiratory effort is even, unlabored, Respiratory pattern is regular, symmetrical. GI: Reports lower abdominal pain, nausea. : Reports discharge, watery, pain in suprapubic area vaginal bleeding that is moderate flow. Derm: Skin is pink, warm \T\ dry. Musculoskeletal: Circulation, motion, and sensation intact. Range of motion: intact in all extremities. Historical: - Allergies: 07:43 No Known Allergies; ph - Home Meds: 08:06 gabapentin oral [Active]; ph - PSHx: 07:43 hip replacement; ankle/foot surgeries, multiple; ph - Immunization history:: Adult Immunizations unknown. - Infectious Disease History:: Denies. - Social history:: Smoking status: Patient/guardian denies using tobacco, the patient reports quitting approximately 5 years ago. Screenin:07 [facility] ED Fall Risk Assessment (Adult) History of falling in the last 3 months, ph including since admission No falls in past 3 months (0 pts) Confusion or Disorientation No (0 pts) Intoxicated or Sedated No (0 pts) Impaired Gait No (0 pts) Mobility Assist Device Used No (0 pt) Altered Elimination No (0 pt) Score/Fall Risk Level 0 - 2 = Low Risk Oriented to surroundings, Maintained a safe environment, Hourly rounding (assess needs \T\ fall precautionary measures) done. Abuse screen: Denies threats or abuse. Denies injuries from another. Nutritional screening: On. Tuberculosis screening: No symptoms or risk factors identified. Assessment: 09:00 General: SEE TRIAGE ASSESSMENT. ph 12:03 Reassessment: Patient appears in no apparent distress at this time. Patient and/or ph family updated on plan of care and expected duration. Pain level reassessed. Patient is alert, oriented x 3, equal unlabored respirations, skin warm/dry/pink. Vital Signs: 08:06 BP 129 / 80; Pulse 105; Resp 18; Temp 98.6; Pulse Ox 98% on R/A; Weight 72.57 kg; ph Height 5 ft. 4 in. ; 09:00 BP 118 / 72; Pulse 87; Resp 18; Pulse Ox 99% on R/A; ph 10:00 BP 120 / 68; Pulse 88; Resp 18; Pulse Ox 99% on R/A; ph 11:00 BP 122 / 70; Pulse 86; Resp 18; Pulse Ox 99% on R/A; ph 12:04 BP 115 / 67; Pulse 87; Resp 18; Pulse Ox 100% on R/A; ph 13:00 BP 122 / 78; Pulse 86; Resp 18; Temp 97.5; Pulse Ox 99% on R/A; ph 08:06 Body Mass Index 27.46 (72.57 kg, 162.56 cm) ph ED Course: 07:36 Patient arrived in ED. mg5 07:40 Tomás Sutton MD is Attending Physician. ec2 07:41 Sima Nieves, DESHAWN is Primary Nurse. ph 07:43 Triage completed. ph 07:44 Arm band placed on Patient placed in an exam room, on a stretcher. ph 08:07 Patient has correct armband on for positive identification. Bed in low position. Call ph light in reach. Side rails up X 1. Pulse ox on. NIBP on. Door closed. Noise minimized. Warm blanket given. Pillow given. 08:11 XRAY Chest (1 view) In Process Unspecified. EDMS 08:15 Initial lab(s) drawn, by me, sent to lab. EKG done, by ED staff, reviewed by Sima Nieves RN T\T\S collected, blood band applied to patient. Inserted saline lock: 20 gauge in left antecubital area, using aseptic technique. Blood collected. Flushed with 10 mL NS. 10:31 Chest Abdomen Pelvis W Cont In Process Unspecified. EDMS 13:17 Radha Modi MD is Referral Physician. ec2 13:48 No provider procedures requiring assistance completed. IV discontinued, intact, ph bleeding controlled, No redness/swelling at site. Pressure dressing applied. Administered Medications: 08:48 Drug: fentaNYL (PF) IVP 50 mcg IVP once Route: IVP; Site: left antecubital; ph 09:10 Follow up: Response: No adverse reaction; Pain is decreased; RASS: Alert and Calm (0) ph 08:48 Drug: Ondansetron IVP 4 mg IVP once; over 2 minutes Route: IVP; Site: left antecubital; ph 09:10 Follow up: Response: No adverse reaction; Nausea is decreased ph 08:48 Drug: NS 0.9% IV 1000 ml IV at 1 bolus Per protocol; to be given as a bolus over 60 ph minutes Route: IV; Rate: 1 bolus; Site: left antecubital; 10:00 Follow up: Response: No adverse reaction; IV Status: Completed infusion; IV Intake: ph 1000ml 13:19 Drug: fentaNYL (PF) IVP 50 mcg IVP once Route: IVP; Site: left antecubital; ph 13:30 Follow up: Response: No adverse reaction; Pain is decreased ph Medication: 08:07 VIS not applicable for this client. ph Intake: 10:00 IV: 1000ml; Total: 1000ml. ph Outcome: 13:17 Discharge ordered by . ec2 13:48 Patient left the ED. ph 13:48 Discharged to home ambulatory, with significant other, ph 13:48 Condition: good 13:48 Discharge instructions given to patient, significant other, Instructed on discharge instructions, follow up and referral plans. medication usage, Demonstrated understanding of instructions, follow-up care, medications, Prescriptions given X 1, Signatures: Dispatcher [employer] Sima Myles RN RN [facility] mg5 Tomás Sutton MD MD ec2
--- NOTE | 2024-06-09 13:18 | EDPHYS ---
Physician Documentation [facility] Name: Janis Adams Age: 59 yrs Sex: Female : 1965 Arrival Date: 06/09/2024 Time: 07:31 Bed 8 Private MD: ED Physician Tomás Sutton HPI: 06/09 08:05 This 59 yrs old Female presents to ER via Ambulatory with complaints of ec2 Abnormal Lab Results. 08:05 Ms. Adams arrives today for evaluation of abnormal lab work. States that she was ec2 recently told that she has a uterine mass, had outpatient lab work and was told she had abnormal lab work with anemia and to come to the ED to be evaluated. Reports she been having some abdominal pain. Reports that she recently had a uterine mass biopsy. Patient is otherwise healthy with no chronic medical problems and no daily medications. She reports that she has been having some occasional vaginal bleeding, states that this worsened over the past several days when she had her biopsy.. Historical: - Allergies: 07:43 No Known Allergies; ph - Home Meds: 08:06 gabapentin oral [Active]; ph - PSHx: 07:43 hip replacement; ankle/foot surgeries, multiple; ph - Immunization history:: Adult Immunizations unknown. - Infectious Disease History:: Denies. - Social history:: Smoking status: Patient/guardian denies using tobacco, the patient reports quitting approximately 5 years ago. ROS: 08:05 Constitutional: as per hpi ec2 Exam: 08:05 Constitutional: GEN: NAD Head: atraumatic Eyes: EOMI Ears: External ears are ec2 normal. CV: Tachycardia LUNGS: no respiratory distress ABD: non-distended SKIN: no evidence of rashes MSK: no evidence of trauma Vital Signs: 08:06 BP 129 / 80; Pulse 105; Resp 18; Temp 98.6; Pulse Ox 98% on R/A; Weight 72.57 kg; ph Height 5 ft. 4 in. ; 09:00 BP 118 / 72; Pulse 87; Resp 18; Pulse Ox 99% on R/A; ph 10:00 BP 120 / 68; Pulse 88; Resp 18; Pulse Ox 99% on R/A; ph 11:00 BP 122 / 70; Pulse 86; Resp 18; Pulse Ox 99% on R/A; ph 12:04 BP 115 / 67; Pulse 87; Resp 18; Pulse Ox 100% on R/A; ph 13:00 BP 122 / 78; Pulse 86; Resp 18; Temp 97.5; Pulse Ox 99% on R/A; ph 08:06 Body Mass Index 27.46 (72.57 kg, 162.56 cm) ph MDM: 08:05 Data reviewed: vital signs. ED course: Patient is patient arrives today for evaluation ec2 of abnormal labs. Examination remarkable for well-appearing nontoxic individuals otherwise slightly tachycardic and in no acute distress. Will obtain lab work, CT imaging. . 08:37 ED course: EKG independently reviewed and interpreted by me, shows sinus tachycardia, ec2 rate of 103, no acute ST segment elevations, intervals are nonactionable.. 08:59 ED course: CBC shows leukocytosis of 14.4, anemia with hemoglobin of 6.5. Will ec2 transfuse a unit of blood. Patient with known malignancy, no anemia, no infectious symptoms to indicate ongoing infection . 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 Patient has already had biopsy of this lesion. No evidence of metastases or intra-abdominal infection. . 13:00 ED course: Patient receiving blood transfusion without issue.. ec2 13:17 Patient medically screened. ec2 06/09 07:46 Order name: Basic Metabolic Panel; Complete Time: 09:27 ec2 06/09 07:46 Order name: CBC with Diff; Complete Time: 09:27 ec2 06/09 07:46 Order name: Troponin HS; Complete Time: 09:27 ec2 06/09 07:46 Order name: PT-INR; Complete Time: 08:58 ec2 06/09 07:46 Order name: Ptt, Activated; Complete Time: 08:58 ec2 06/09 07:46 Order name: UAM; Complete Time: 10:32 ec2 06/09 08:05 Order name: Blood Culture Adult (2) ec2 06/09 08:05 Order name: Lactate w/ 2H reflex if indic.; Complete Time: 09:04 ec2 06/09 08:44 Order name: Liver (Hepatic) Function; Complete Time: 09:27 EDMS 06/09 09:02 Order name: Packed Rbc Leukored ec2 06/09 09:04 Order name: ABO/RH typing EDMS 06/09 09:04 Order name: Antibody Screen EDMS 06/09 09:05 Order name: Bb Add On eb 06/09 09:25 Order name: CBC Smear Scan; Complete Time: 09:27 EDMS 06/09 10:21 Order name: ABO/RH no charge; Complete Time: 10:32 EDMS 06/09 07:46 Order name: XRAY Chest (1 view); Complete Time: 09:04 ec2 06/09 08:21 Order name: Chest Abdomen Pelvis W Cont; Complete Time: 11:03 EDMS 06/09 08:05 Order name: EKG; Complete Time: 08:07 ec2 06/09 07:46 Order name: Cardiac monitoring; Complete Time: 08:49 ec2 06/09 07:46 Order name: EKG - Nurse/Tech; Complete Time: 08:49 ec2 06/09 07:46 Order name: IV Saline Lock; Complete Time: 08:49 ec2 06/09 07:46 Order name: Labs collected and sent; Complete Time: 08:49 ec2 06/09 07:46 Order name: O2 Per Protocol; Complete Time: 08:49 ec2 06/09 07:46 Order name: O2 Sat Monitoring; Complete Time: 08:49 ec2 06/09 08:05 Order name: Accucheck; Complete Time: 08:49 ec2 06/09 08:05 Order name: IV Saline Lock - Large Bore; Complete Time: 08:49 ec2 06/09 08:05 Order name: Vital Signs; Complete Time: 08:08 ec2 06/09 08:58 Order name: Labs - recollect needed: recollect T\T\S and reband the patient/ hemolyzed; eb Complete Time: 09:40 06/09 09:02 Order name: Consent for Blood Transfusion; Complete Time: 10:50 ec2 Administered Medications: 08:48 Drug: fentaNYL (PF) IVP 50 mcg IVP once Route: IVP; Site: left antecubital; ph 09:10 Follow up: Response: No adverse reaction; Pain is decreased; RASS: Alert and Calm (0) ph 08:48 Drug: Ondansetron IVP 4 mg IVP once; over 2 minutes Route: IVP; Site: left antecubital; ph 09:10 Follow up: Response: No adverse reaction; Nausea is decreased ph 08:48 Drug: NS 0.9% IV 1000 ml IV at 1 bolus Per protocol; to be given as a bolus over 60 ph minutes Route: IV; Rate: 1 bolus; Site: left antecubital; 10:00 Follow up: Response: No adverse reaction; IV Status: Completed infusion; IV Intake: ph 1000ml 13:19 Drug: fentaNYL (PF) IVP 50 mcg IVP once Route: IVP; Site: left antecubital; ph 13:30 Follow up: Response: No adverse reaction; Pain is decreased ph Disposition Summary: 06/09/24 13:17 Discharge Ordered Condition: Stable ec2 Diagnosis - Abnormal uterine and vaginal bleeding, unspecified ec2 - Uterine Mass, possible cancer ec2 - Anemia, unspecified ec2 Followup: ec2 - With: Radha Modi MD - When: - Reason: Continuance of care Discharge Instructions: - Discharge Summary Sheet ec2 - Pelvic Mass, Female ec2 Forms: - Medication Reconciliation Form ec2 - Antibiotic Education ec2 - Prescription Opioid Use ec2 - Patient Portal Instructions ec2 - Leadership Thank You Letter ec2 Prescriptions: - acetaminophen-codeine 300-60 mg Oral tablet - take 1 tablet ORAL route every 6 hours; 15 tablet; Refills: 0, Product ec2 Selection Permitted Critical care time excluding procedures: 11:14 Critical care time: Bedside Care: 30 minutes. Total time: 30 minutes ec2 Signatures: Dispatcher [employer] Sima Myles RN RN ph Botello, Elizabeth eb Corral, Edwin, MD MD ec2 Corrections: (The following items were deleted from the chart) 07:46 07:46 BASIC METABOLIC PANEL+C.LAB.BRZ ordered. EDMS EDMS 07:46 07:46 CBC+H.LAB.BRZ ordered. EDMS EDMS 07:46 07:46 Troponin High Sensitivity+C.LAB.BRZ ordered. EDMS EDMS 07:46 07:46 PROTIME (+INR)+COAG.LAB.BRZ ordered. EDMS EDMS 07:46 07:46 PTT, ACTIVATED+COAG.LAB.BRZ ordered. EDMS EDMS 07:46 07:46 TYPE AND SCREEN+BB.LAB.BRZ ordered. EDMS EDMS 07:46 07:46 Urinalysis W/Microscopic+U.LAB.BRZ ordered. EDMS EDMS 07:47 07:47 Chest Single View+RAD.RAD.BRZ ordered. EDMS EDMS 08:07 08:07 Abdomen Pelvis W Con+CT.RAD.BRZ ordered. EDMS EDMS 08:07 08:05 Ms. Adams arrives today for evaluation of abnormal lab work. States that she was ec2 recently told that she has a uterine mass, had outpatient lab work and was told she had abnormal lab work with anemia and to come to the ED to be evaluated. Reports she been having some abdominal pain. Reports that she recently had a uterine mass biopsy. Patient is otherwise healthy with no chronic medical problems and no daily medications.. ec2 08:44 08:05 HEPATIC FUNCTION+C.LAB.BRZ ordered. EDMS EDMS 09:02 09:02 PACKED RBC LEUKORED+BB.LAB.BRZ ordered. EDMS EDMS
[2024-06-09 15:09] VITALS: TEMP 98.6
[2024-06-09 15:15] VITALS: BP 115/67; O2SAT 100
--- NOTE | 2024-06-15 12:19 | EKG ---
Test Date: 2024-06-09 Test Time: 08:20:30 [employer] Education Director: PH MEASUREMENT RESULTS: Intervals: Rate: 103 LA: 144 QRSD: 76 QT: 332 QTc: 434 [place]: P: 32 LA: 144 QRS: 76 T: 38 INTERPRETIVE STATEMENTS: Sinus tachycardia Possible Left atrial enlargement Borderline ECG No previous ECG available for comparison Electronically Signed On 06-15-24 12:02:09 CDT by Alejo Bullard
== END 2024-06-09 13:48 | disposition home or self-care (01) ==
LOC: ER 07:31
PROC: 30233N1 Transfusion of Nonautologous Red Blood Cells into Peripheral Vein, Percutaneous Approach (ICD-10-PCS; principal; 2024-06-09)
DX: D64.9 Anemia, unspecified (principal); N85.8 Other specified noninflammatory disorders of uterus
CPT/HCPCS: 93005; 87040 ×2; 85025; 81001; 80048; 36415; 86900; 86850; 85610; 86901; 80076; 83605; 85730; 86920; 84484; 71260; 74177; 71045; 36430; Q9967; J3010 ×2; J2405; P9016; J7050; J7030; 96361; 96374; 96375; 99284

== ENCOUNTER 2025-04-17 10:38 | Observation (INO) | payer OTHER ==
[2025-04-17] MEDS ORDERED: NA CHLORIDE 0.9% 250 ML ONE (11:18)
[2025-04-17] MEDS ORDERED: CEFEPIME 2 GM VIAL ONE (11:18)
[2025-04-17] MEDS ORDERED: ONDANSETRON 4 MG/2 ML VIAL ONE (11:18)
[2025-04-17] MEDS ORDERED: MORPHINE 4 MG/ML SYR ONE ×2 (11:18→16:02)
[2025-04-17] MEDS ORDERED: VANCOMYCIN 1 GM/VIAL ONE (11:19)
[2025-04-17] MEDS ORDERED: NA CHLORIDE 0.9% 100 ML ONE (11:19)
[2025-04-17] MEDS ORDERED: NA CHLORIDE 0.9% 1,000 ML ONE ×2 (11:19→12:16)
[2025-04-17 11:25] LABS: Absolute Lymphocytes (CBC) 1.2 K/uL (0.7-4.9); Hematocrit 33.6 % (36.0-45.0); Hemoglobin 11.1 g/dL (12.0-15.0); MCH 28.8 pg (27.0-35.0); MCHC 33.0 g/dL (32.0-36.0); MCV 87.5 fL (80-100); MPV 7.5 fL (7.6-11.3); Nucleated RBC Absolute Count 0.0 (0-0); Nucleated Red Blood Cells % 0.0 % (0-0); RBC Red Blood Cell Count 3.84 M/uL (3.86-4.86); White Blood Count 13.00 thou/uL (4.3-10.9)
[2025-04-17 11:37] LABS: PT Prothrombin Time 11.2 SECONDS (10-13.0); PTT, Activated Partial Thromb 27.6 SECONDS (27.2-37.4); Protime INR 0.99
--- NOTE | 2025-04-17 11:51 | RAD REPORT ---
EXAM: Chest Abdomen Pelvis W Cont CLINICAL INDICATION: Cough and abdominal pain TECHNIQUE: CT chest, abdomen and pelvis was performed, with 100 cc Isovue-300 IV contrast, as per de partment protocol. Axial, sagittal and coronal reconstructions were obtained. One or more of the following dose reduction techniques were used: Automated exposure control, adjustment of the mA and/o r kV according to the patient size, and/or iterative reconstruction. Unless otherwise specified, incidental findings do not require dedicated imaging follow-up. [id number]. Oral contrast not given. This limits evaluation of the bowel. COMPARISON: 2023 FINDINGS: Bilateral small groundglass opacities within predominantly upper lobes. No pleural effusion.. No pericardial effusion Liver, spleen, pancreas, adrenals, kidneys and bladder do not demonstrate an acute traumatic injury. There is no evidence of diverticulitis. Moderate amount stool throughout the colon. Normal appendix. Hysterectomy. No adnexal mass. Left hip arthroplasty. 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 Ventral hernia contains multiple loops of nondilated bowel. The neck measures 4 cm. Mild anterior subluxation L4 on L5. IMPRESSION: Mild bilateral groundglass opacities probably inflammatory or infectious. Follow-up CT chest in 3 mon ths recommended for reevaluation Moderate ventral hernia containing nondilated small bowel Gallbladder distention
[2025-04-17 11:59] LABS: Potassium 3.9 mEq/L (3.5-5.1)
[2025-04-17 12:00] LABS: ALT/SGPT 19.0 U/L (13-56); AST/SGOT 14.0 U/L (15-37); Alkaline Phosphatase 71.0 U/L (45-117); Anion Gap 9.9 mEq/L (5.0-15.0); BUN Blood Urea Nitrogen 11.0 mg/dL (7-18); Glucose Level 144.0 mg/dL (74-106)
[2025-04-17 12:01] LABS: Albumin 3.4 g/dL (3.4-5.0); Albumin/Globulin Ratio 1.0 (1.1-1.8); Globulin 3.4 g/dL (2.3-3.5); NT PRO-BNP 330.0 pg/mL (<125); Troponin High Sensitivity 8.3 (<58.9)
[2025-04-17] MEDS ORDERED: ACETAMINOPHEN 500 MG TAB ONE (12:15)
[2025-04-17 13:02] LABS: Influenza A Ag Negative; Influenza B Ag Negative; SARS-CoV-2 Antigen Rapid Res Negative (Negative)
--- NOTE | 2025-04-17 13:23 | EDPHYS ---
Physician Documentation [facility] Name: Janis Adams Age: 60 yrs Sex: Female : 1965 Arrival Date: 04/17/2025 Time: 10:38 Bed 14 Private MD: ED Physician Venus Mann HPI: 04/17 10:59 This 60 yrs old Female presents to ER via Unassigned with complaints of General sp3 Weakness. 10:59 60-year-old female with history of stage III uterine cancer with last PET scan no sp3 cancer detectable now presents to the ED with chief complaint generalized weakness, abdominal pain, abdominal wall pain and lymphadenopathy in the groin. Patient also has a low-grade fever. Symptoms have been going on for the last 2 to 3 days. She seeks her cancer care at [facility] in [place]. Review of systems negative for headache, chest pain, shortness of breath, back pain, dysuria, urinary frequency, rash, bleeding, known sick contacts, travel history, or any other signs or symptoms on ROS at this time. Patient is on maintenance Keytruda every 6 weeks.. Historical: - Allergies: 11:36 No Known Allergies; ph - PSHx: 11:36 ankle/foot surgeries; hip replacement; ph - Immunization history:: Adult Immunizations unknown. - Infectious Disease History:: Denies. - Social history:: Smoking status: Patient/guardian denies using tobacco, the patient reports quitting approximately 5 years ago. ROS: 11:01 Constitutional: Negative for fever, chills, and weight loss, Eyes: Negative for injury, sp3 pain, redness, and discharge, Neck: Negative for injury, pain, and swelling, Respiratory: Negative for shortness of breath, cough, wheezing, and pleuritic chest pain, Back: Negative for injury and pain, MS/Extremity: Negative for injury and deformity, Skin: Negative for injury, rash, and discoloration, Neuro: Negative for headache, weakness, numbness, tingling, and seizure, Psych: Negative for depression, anxiety, suicide ideation, homicidal ideation, and hallucinations, 11:01 All other systems are negative, Exam: 11:01 Head/Face: Normocephalic, atraumatic. Eyes: Pupils equal round and reactive to light, sp3 extra-ocular motions intact. Lids and lashes normal. Conjunctiva and sclera are non-icteric and not injected. Cornea within normal limits. Periorbital areas with no swelling, redness, or edema. Neck: Trachea midline, no thyromegaly or masses palpated, and no cervical lymphadenopathy. Supple, full range of motion without nuchal rigidity, or vertebral point tenderness. No Meningismus. Chest/axilla: Normal chest wall appearance and motion. Nontender with no deformity. No lesions are appreciated. Respiratory: Lungs have equal breath sounds bilaterally, clear to auscultation and percussion. No rales, rhonchi or wheezes noted. No increased work of breathing, no retractions or nasal flaring. Back: No spinal tenderness. No costovertebral tenderness. Full range of motion. Skin: Warm, dry with normal turgor. Normal color with no rashes, no lesions, and no evidence of cellulitis. Neuro: Awake and alert, GCS 15, oriented to person, place, time, and situation. Cranial nerves II-XII grossly intact. Motor strength 5/5 in all extremities. Sensory grossly intact. Cerebellar exam normal. Normal gait. Psych: Awake, alert, with orientation to person, place and time. Behavior, mood, and affect are within normal limits. 11:01 Constitutional: The patient appears Patient with low-grade fever, tachycardia at 140 bpm, abdominal wall tenderness and small mass just left of the umbilicus, and groin lymphadenopathy noted. 12:29 ECG was reviewed by the Attending Physician. EKG demonstrates sinus tachycardia at 117 sp3 bpm with normal intervals, normal QRS, normal axis, nonspecific diffuse ST/T changes likely rate related without evidence of acute ischemia. Vital Signs: 10:39 BP 136 / 89; Pulse 130; Resp 24; Temp 100.2; Pulse Ox 96% on R/A; Weight 62.6 kg; ph Height 5 ft. 4 in. ; 12:08 BP 117 / 71; Pulse 118; Resp 22; Pulse Ox 97% on R/A; ph 12:40 BP 103 / 70; Pulse 114; Resp 20; Pulse Ox 95% on R/A; ph 14:00 BP 110 / 68; Pulse 108; Resp 18; Pulse Ox 96% on R/A; ph 15:02 Pulse 102; Resp 20; Temp 98.7; Pulse Ox 95% on R/A; ph 10:39 Body Mass Index 23.69 (62.60 kg, 162.56 cm) ph MDM: 10:40 Medical Screening Exam initiated dr5 11:02 Data reviewed: vital signs, nurses notes, old medical records, lab test result(s), EKG, sp3 radiologic studies. ED course: 60-year-old female with PMH above now with tachycardia, abdominal pain and generalized weakness. Differential diagnosis includes recurrent cancer, abdominal wall abscess, abdominal wall hematoma, UTI, other GI pathology or infection, among others. We will initiate normal saline 1 L due to unknown cardiac status, history of anemia requiring transfusion in case PRBCs are needed over fluids. Blood pressure is normal. Clinically patient is perfusing periphery. Lactate is pending. Also CT scan of the chest abdomen pelvis pending along with routine labs. Cultures drawn and antibiotics have been ordered. Pain and nausea control as well. Patient will need to be admitted versus transferred with final disposition pending workup and patient course.. 13:21 ED course: CT demonstrates groundglass opacities and ventral hernia. No recurrence of sp3 cancer noted. COVID is negative as is flu. Mild bump in leukocytosis. Antibiotics on board. Lactic acid also mildly elevated. We will continue with IV fluids, antibiotics and admit patient to internal medicine for continued monitoring and treatment.. 04/17 10:48 Order name: BNP; Complete Time: 12: [facility] 04/17 10:48 Order name: Blood Culture Adult (2) 3 04/17 10:48 Order name: CBC with Diff; Complete Time: 12: [facility] 04/17 10:48 Order name: CMP; Complete Time: 12: [facility] 04/17 10:48 Order name: Lactate w/ 2H reflex if indic.; Complete Time: 12: 3 04/17 10:48 Order name: Protime (+inr); Complete Time: 12: 3 04/17 10:48 Order name: Ptt, Activated; Complete Time: 12: 3 04/17 10:48 Order name: Troponin HS; Complete Time: 12:05 3 04/17 10:48 Order name: UA Rfx Theo Cult if indicated 3 04/17 11:56 Order name: Ghost Lactate-NO COLLECT Timer [facility] 04/17 12:06 Order name: COVID-19 Ag + Flu A+B Ag; Complete Time: 13:17 sp3 04/17 14:07 Order name: Basic Metabolic Panel EDMS 04/17 14:07 Order name: Basic Metabolic Panel EDMS 04/17 14:07 Order name: Basic Metabolic Panel EDMS 04/17 14:07 Order name: Basic Metabolic Panel EDMS 04/17 14:07 Order name: Basic Metabolic Panel EDMS 04/17 14:07 Order name: Basic Metabolic Panel EDMS 04/17 14:07 Order name: CBC with Automated Diff EDMS 04/17 14:07 Order name: CBC with Automated Diff EDMS 04/17 14:07 Order name: CBC with Automated Diff EDMS 04/17 14:07 Order name: CBC with Automated Diff EDMS 04/17 14:07 Order name: CBC with Automated Diff EDMS 04/17 14:07 Order name: CBC with Automated Diff EDMS 04/17 14:07 Order name: Lipid Profile EDMS 04/17 14:07 Order name: Lipid Profile EDMS 04/17 14:07 Order name: Magnesium EDMS 04/17 14:07 Order name: Magnesium EDMS 04/17 14:07 Order name: Magnesium EDMS 04/17 14:07 Order name: Magnesium EDMS 04/17 14:07 Order name: Magnesium EDMS 04/17 14:07 Order name: Magnesium EDMS 04/17 14:07 Order name: Phosphorus EDMS 04/17 14:07 Order name: Phosphorus EDMS 04/17 14:07 Order name: Phosphorus EDMS 04/17 14:07 Order name: Phosphorus EDMS 04/17 14:07 Order name: Phosphorus EDMS 04/17 14:07 Order name: Phosphorus EDMS 04/17 14:07 Order name: T4 Free EDMS 04/17 14:07 Order name: T4 Free EDMS 04/17 14:07 Order name: Thyroid Stimulating Hormone EDMS 04/17 14:07 Order name: Thyroid Stimulating Hormone EDMS 04/17 14:07 Order name: Troponin High Sensitivity EDMS 04/17 14:07 Order name: Troponin High Sensitivity EDMS 04/17 14:07 Order name: Troponin High Sensitivity EDMS 04/17 15:33 Order name: Lactate Sepsis 2 HR Follow-up EDMS 04/17 10:48 Order name: CT Chest, Abdomen, Pelvis - W/Contrast; Complete Time: 12:01 sp3 04/17 10:48 Order name: EKG; Complete Time: 10:50 sp3 04/17 14:07 Order name: Physical Therapy Consult EDMS 04/17 10:48 Order name: Cardiac monitoring; Complete Time: 11:48 sp3 04/17 10:48 Order name: EKG - Nurse/Tech; Complete Time: 11:48 sp3 04/17 10:48 Order name: IV Saline Lock - Large Bore; Complete Time: 11:49 sp3 04/17 10:48 Order name: Labs collected and sent; Complete Time: 11:49 sp3 04/17 10:48 Order name: O2 Per Protocol; Complete Time: 11:49 sp3 04/17 10:48 Order name: O2 Sat Monitoring; Complete Time: 11:49 sp3 04/17 10:48 Order name: Vital Signs; Complete Time: 11:49 sp3 04/17 10:48 Order name: NPO; Complete Time: 11:00 sp3 Administered Medications: 11:50 Drug: Cefepime IVPB 2 grams IVPB at 200 ml/hr once over 30 mins; (mix in NS 100 mL) ph Route: IVPB; Rate: 200 ml/hr; Infused Over: 30 mins; Site: left antecubital; 12:20 Follow up: Response: No adverse reaction; IV Status: Completed infusion ph 11:50 Drug: NS 0.9% IV 1000 ml IV at 1000 ml once; to be given as a bolus over 60 minutes ph Route: IV; Rate: 1000 ml; Site: left antecubital; 12:50 Follow up: Response: No adverse reaction; IV Status: Completed infusion; IV Intake: ph 1000ml 11:50 Drug: morphine IVP or IV 4 mg IVP once over 4 mins Route: IVP; Infused Over: 4 mins; ph Site: left antecubital; 15:50 Follow up: Response: No adverse reaction; Pain is decreased ph 11:50 Drug: Ondansetron IVP 4 mg IVP once; over 2 minutes Route: IVP; Site: left antecubital; ph 15:50 Follow up: Response: No adverse reaction ph 12:10 Drug: Acetaminophen PO 1000 mg PO once Route: PO; ph 13:00 Follow up: Response: No adverse reaction; Temperature is decreased ph 12:30 Drug: vancoMYCIN IVPB 1 grams IVPB once over 2 hrs Route: IVPB; Infused Over: 2 hrs; ph Site: left antecubital; 14:00 Follow up: Response: No adverse reaction; IV Status: Completed infusion ph 12:55 Drug: NS 0.9% IV 1000 ml IV at 1000 ml once; to be given as a bolus over 60 minutes ph Route: IV; Rate: 1000 ml; Site: left antecubital; 14:00 Follow up: Response: No adverse reaction; IV Status: Completed infusion; IV Intake: ph 1000ml 16:08 Drug: morphine IVP or IV 4 mg IVP once over 4 mins Route: IVP; Infused Over: 4 mins; ph Site: left antecubital; 16:08 Follow up: Response: No adverse reaction ph Disposition Summary: 04/17/25 13:23 Hospitalization Ordered Notes: Hospitalization Status: Inpatient Admission sp3 Provider: Leann Fallon [facility] sp3 Condition: Stable sp3 Problem: new sp3 Symptoms: have worsened sp3 Bed/Room Type: Standard sp3 Room Assignment: 222(04/17/25 14:24) iw Diagnosis - Viral illness, pneumonia, dehydration sp3 Forms: - Medication Reconciliation Form sp3 - SBAR form sp3 - Leadership Thank You Letter sp3 Signatures: Dispatcher [employer] Edie Mead RN RN iw Sima Nieves RN RN ph Patel, Setul, MD MD sp3 Compa Cruz, SAFETY SEALER-C SAFETY SEALER-Cdr5 Corrections: (The following items were deleted from the chart) 11:01 10:59 60-year-old female with history of stage III uterine cancer with last PET scan no sp3 cancer detectable now presents to the ED with chief complaint generalized weakness, abdominal pain, abdominal wall pain and lymphadenopathy in the groin. Patient also has a low-grade fever. Symptoms have been going on for the last 2 to 3 days. She seeks her cancer care at [facility] in [place]. Review of systems negative for headache, chest pain, shortness of breath, back pain, dysuria, urinary frequency, rash, bleeding, known sick contacts, travel history, or any other signs or symptoms on ROS at this time.. sp3 14:24 13:23 sp3 iw
--- NOTE | 2025-04-17 13:23 | ER ---
Nurse's Notes [facility] Name: Janis Adams Age: 60 yrs Sex: Female : 1965 Arrival Date: 04/17/2025 Time: 10:38 Bed 14 Private MD: Diagnosis: Viral illness, pneumonia, dehydration Presentation: 04/17 10:39 Chief complaint: Patient states: Chills, weakness and fever that started today, ph swelling to L abdomen that has been ongoing, became painful last night, recent hx of uterine cancer, no longer receiving chemotherapy but is getting immunotherapy. 10:39 Method Of Arrival: Wheelchair 10:39 Coronavirus screen: Vaccine status: Patient reports being unvaccinated. Ebola Screen: No symptoms or risks identified at this time. Initial Sepsis Screen: Does the patient meet any 2 criteria? No. Patient's initial sepsis screen is negative. Does the patient have a suspected source of infection? No. Patient's initial sepsis screen is negative. Risk Assessment: Do you want to hurt yourself or someone else? Patient reports no desire to harm self or others. Onset of symptoms was April 17, 2025. 10:39 Acuity: MIREYA 2 ph Triage Assessment: 10:45 General: Appears in no apparent distress. comfortable, well groomed, Behavior is calm, ph cooperative, appropriate for age, Reports chills for 0-12 hours. Pain: Complains of pain in left upper quadrant and left lower quadrant Pain does not radiate. Neuro: Level of Consciousness is awake, alert, obeys commands, Oriented to person, place, time, situation. Cardiovascular: Capillary refill < 3 seconds in bilateral fingers Patient's skin is warm and dry. Rhythm is sinus tachycardia. Respiratory: Airway is patent Respiratory effort is even, unlabored, Respiratory pattern is tachypnea. GI: Abdomen is swelling noted to L abdomen Reports lower abdominal pain, upper abdominal pain, Patient currently denies diarrhea, nausea, vomiting. : No signs and/or symptoms were reported regarding the genitourinary system. Derm: Skin is pink, warm \T\ dry. Musculoskeletal: Circulation, motion, and sensation intact. Range of motion: intact in all extremities. Historical: - Allergies: 11:36 No Known Allergies; ph - PSHx: 11:36 ankle/foot surgeries; hip replacement; ph - Immunization history:: Adult Immunizations unknown. - Infectious Disease History:: Denies. - Social history:: Smoking status: Patient/guardian denies using tobacco, the patient reports quitting approximately 5 years ago. Screenin:47 [facility] ED Fall Risk Assessment (Adult) History of falling in the last 3 months, ph including since admission No falls in past 3 months (0 pts) Confusion or Disorientation No (0 pts) Intoxicated or Sedated No (0 pts) Impaired Gait No (0 pts) Mobility Assist Device Used No (0 pt) Altered Elimination No (0 pt) Score/Fall Risk Level 0 - 2 = Low Risk Oriented to surroundings, Maintained a safe environment, Hourly rounding (assess needs \T\ fall precautionary measures) done. Abuse screen: Denies threats or abuse. Denies injuries from another. Nutritional screening: No deficits noted. Tuberculosis screening: No symptoms or risk factors identified. Assessment: 11:46 General: SEE TRIAGE ASSESSMENT. ph 12:13 Reassessment: Patient appears in no apparent distress at this time. Patient and/or ph family updated on plan of care and expected duration. Pain level reassessed. Patient is alert, oriented x 3, equal unlabored respirations, skin warm/dry/pink. 13:30 Reassessment: Patient appears in no apparent distress at this time. Patient and/or ph family updated on plan of care and expected duration. Pain level reassessed. Patient is alert, oriented x 3, equal unlabored respirations, skin warm/dry/pink. 15:00 Reassessment: Patient appears in no apparent distress at this time. Patient and/or ph family updated on plan of care and expected duration. Pain level reassessed. Patient is alert, oriented x 3, equal unlabored respirations, skin warm/dry/pink. Vital Signs: 10:39 BP 136 / 89; Pulse 130; Resp 24; Temp 100.2; Pulse Ox 96% on R/A; Weight 62.6 kg; ph Height 5 ft. 4 in. ; 12:08 BP 117 / 71; Pulse 118; Resp 22; Pulse Ox 97% on R/A; ph 12:40 BP 103 / 70; Pulse 114; Resp 20; Pulse Ox 95% on R/A; ph 14:00 BP 110 / 68; Pulse 108; Resp 18; Pulse Ox 96% on R/A; ph 15:02 Pulse 102; Resp 20; Temp 98.7; Pulse Ox 95% on R/A; ph 10:39 Body Mass Index 23.69 (62.60 kg, 162.56 cm) ph Vitals: 12:08 Cardiac Rhythm Assessment Sinus tach. ph ED Course: 10:39 Patient arrived in ED. im 10:39 [facility] 10:39 Venus Mann MD is Attending Physician. dr5 10:42 Venus Mann MD is Attending Physician. sp3 10:58 Sima Nieves, DESHAWN is Primary Nurse. ph 11:10 Initial lab(s) drawn, by me, sent to lab. First set of blood cultures drawn by me. ph Inserted saline lock: 22 gauge in left antecubital area, using aseptic technique. Blood collected. Flushed with 10 mL NS. 11:28 CT Chest, Abdomen, Pelvis - W/Contrast In Process Unspecified. EDMS 11:30 Second set of blood cultures drawn by me. ph 11:35 Triage completed. ph 11:47 Arm band placed on Patient placed in an exam room, on a stretcher, on cardiac technician, ph on pulse oximetry. 11:48 Patient has correct armband on for positive identification. Bed in low position. Call ph light in reach. Side rails up X 1. surveillance monitor on. Pulse ox on. NIBP on. Door closed. Noise minimized. Pillow given. 11:49 Troponin HS Sent. ph 11:49 Lactate w/ 2H reflex if indic. Sent. ph 11:49 CMP Sent. ph 11:49 Blood Culture Adult (2) Sent. ph 11:49 BNP Sent. ph 11:51 EKG done, by drinking water technician. ts3 11:53 Notified ED physician of a critical lab result(s). lactate 2.3 Dr. Mann. ll1 12:38 COVID-19 Ag + Flu A+B Ag Sent. ph 13:22 Leann Fallon MD is Hospitalizing Provider. sp3 15:01 No provider procedures requiring assistance completed. Patient admitted, IV remains in ph place. 15:11 Urine collected: clean catch specimen, sent to lab. ts3 Administered Medications: 11:50 Drug: Cefepime IVPB 2 grams IVPB at 200 ml/hr once over 30 mins; (mix in NS 100 mL) ph Route: IVPB; Rate: 200 ml/hr; Infused Over: 30 mins; Site: left antecubital; 12:20 Follow up: Response: No adverse reaction; IV Status: Completed infusion ph 11:50 Drug: NS 0.9% IV 1000 ml IV at 1000 ml once; to be given as a bolus over 60 minutes ph Route: IV; Rate: 1000 ml; Site: left antecubital; 12:50 Follow up: Response: No adverse reaction; IV Status: Completed infusion; IV Intake: ph 1000ml 11:50 Drug: morphine IVP or IV 4 mg IVP once over 4 mins Route: IVP; Infused Over: 4 mins; ph Site: left antecubital; 15:50 Follow up: Response: No adverse reaction; Pain is decreased ph 11:50 Drug: Ondansetron IVP 4 mg IVP once; over 2 minutes Route: IVP; Site: left antecubital; ph 15:50 Follow up: Response: No adverse reaction ph 12:10 Drug: Acetaminophen PO 1000 mg PO once Route: PO; ph 13:00 Follow up: Response: No adverse reaction; Temperature is decreased ph 12:30 Drug: vancoMYCIN IVPB 1 grams IVPB once over 2 hrs Route: IVPB; Infused Over: 2 hrs; ph Site: left antecubital; 14:00 Follow up: Response: No adverse reaction; IV Status: Completed infusion ph 12:55 Drug: NS 0.9% IV 1000 ml IV at 1000 ml once; to be given as a bolus over 60 minutes ph Route: IV; Rate: 1000 ml; Site: left antecubital; 14:00 Follow up: Response: No adverse reaction; IV Status: Completed infusion; IV Intake: ph 1000ml 16:08 Drug: morphine IVP or IV 4 mg IVP once over 4 mins Route: IVP; Infused Over: 4 mins; ph Site: left antecubital; 16:08 Follow up: Response: No adverse reaction ph Medication: 11:48 VIS not applicable for this client. ph Intake: 12:50 IV: 1000ml; Total: 1000ml. ph 14:00 IV: 1000ml; Total: 2000ml. ph Outcome: 13:23 Decision to Hospitalize by Provider. sp3 15:48 Admitted to Med/surg accompanied by nurse, family with patient, via wheelchair, room ph 222, with chart, 15:48 Condition: stable 15:48 Instructed on the need for admit, 16:18 Patient left the ED. jb4 Signatures: Dispatcher [employer] EDSima Santos RN RN ph Gonzales Guzman RN RN jb4 Libra Zapata RN RN ll1 Venus Mann MD MD sp3 Estelita Banerjee Dustin, HUMAN RESOURCES SERVICES SPECIALIST-C HUMAN RESOURCES SERVICES SPECIALIST-Cdr5 Laura Hernandez ts3 Corrections: (The following items were deleted from the chart) 11:33 10:58 Chief complaint: Patient states: Chills, weakness and fever that started today, ph swelling to L abdomen that has been ongoing, became painful last night, recent hx of uterine cancer, no longer receiving chemotherapy but is getting immunotherapy ph 12:39 12:05 Acetaminophen PO 1000 mg PO ph ph
[2025-04-17] MEDS ORDERED: ACETAMINOPHEN 325 MG TABLET PO PRN (14:02)
[2025-04-17 15:20] LABS: Urine Microscopic Reflex YN NO UMIC
[2025-04-17] MEDS: NA CHLORIDE 0.9% 1,000 ML IV SCH (18:17)
[2025-04-17] MEDS: METHYLPREDNISOLONE 40 MG INJ IV SCH (18:17)
[2025-04-17 19:01] VITALS: BMI 23.6
[2025-04-17 19:56] VITALS: O2SAT 95
[2025-04-17] MEDS: MORPHINE 2 MG/ML SYR IV PRN (20:44)
[2025-04-17] MEDS: CEFEPIME 1 GM in NA CHLORIDE 0.9% 100 ML IV SCH (20:49)
--- NOTE | 2025-04-17 21:39 | P.HP ---
Certification for Inpatient Patient admitted to: Inpatient With expected LOS: >2 Midnights Practitioner: I am a practitioner with admitting privileges, knowledge of patient current condition, hospital course, and medical plan of care. Services: Services provided to patient in accordance with Admission requirements found in Title 42 Section 412.3 of the Code of Federal Regulations Patient History Date of Service: 04/17/25 Reason for admission: Generalized weakness History of Present Illness: Janis Adams is a 60 year old female with Pmhx Stage 3 uterine cancer in remission on maintenance Keytruda every 6 weeks who presents to the ED with abdominal pain and low grade fever for 2 to 3 days. Laboratory evaluation significant for WBC 13, H&H 11/33, lactic acid 2.3/1.7, UA negative for infectious process, flu and COVID-negative. CT CAP Reports "Mild bilateral groundglass opacities probably inflammatory or infectious. Follow-up CT chest in 3 months recommended for reevaluation Moderate ventral hernia containing nondilated small bowel. Gallbladder distention." Janis will be admitted to hospitalist service for further evaluation and treatment of generalized weakness. Allergies ketorolac [From Toradol] Adverse Reaction (Verified 04/17/25 18:29) Itching/Hives/Rash Home Medications: Buprenorphine HCl/Naloxone HCl [Buprenorphine-Nalox 2-0.5MG Tb] 1 each SL BID 04/17/25 Gabapentin 300 mg PO TID PRN 04/17/25 Ondansetron [Zofran (Odt)*] 8 mg PO Q6H PRN 04/17/25 Tizanidine HCl [Zanaflex] 4 mg PO BEDTIME 04/17/25 Albuterol Inhaler [Ventolin Inhaler*] 2 puff IH Q6H PRN #1 inh 04/18/25 Benzonatate [Tessalon Perle] 200 mg PO TID #30 cap 04/18/25 Cefdinir [Cefdinir*] 300 mg PO BID #14 cap 04/18/25 Doxycycline Hyclate 100 mg PO BID #14 tab 04/18/25 predniSONE [Deltasone] 20 mg PO BID #20 tab 04/18/25 - Past Medical/Surgical History Has patient received pneumonia vaccine in the past: No -: Stage 3 uterine cancer in remission -: Rt foot -: hip replacement - lt - Social History Smoking Status: Former smoker Alcohol use: No CD- Drugs: No Caffeine use: No Place of Residence: Home Review of Systems Other: Per HPI Physical Examination - Vital Signs Temperature: 98.7 F Blood Pressure: 110/68 Pulse: 102 Respirations: 16 Pulse Ox (%): 95 - Physical Exam General: Alert, In no apparent distress, Oriented x3 HEENT: Atraumatic, Normocephalic Neck: Supple Respiratory: Clear to auscultation bilaterally Cardiovascular: Normal pulses, Regular rate/rhythm Gastrointestinal: Normal bowel sounds, Soft and benign Musculoskeletal: No clubbing Integumentary: No rashes Neurological: Normal speech, Normal tone - Studies Laboratory Data (last 24 hrs) 04/17/25 04/17/25 04/17/25 11:10 11:10 11:10 WBC 13.00 H Hgb 11.1 L Hct 33.6 L Plt Count 246 PT 11.2 INR 0.99 APTT 27.6 Sodium 139 Potassium 3.9 BUN 11 Creatinine 0.66 Glucose 144 H Total Bilirubin 0.4 AST 14 L ALT 19 Alkaline Phosphatase 71 Assessment and Plan - Plan Assessment and plan Severe sepsis secondary to pneumonia vs viral respiratory infection Lactic acidosis -Severe sepsis criteria WBC 13, lactic acid 2.3, respiratory rate 24 -Van and cefepime -follow blood cultures -Gentle IVF -Monitor WBC and temperature Stage 3 Uterine cancer in remission -supportive care -continue outpatient follow up and management at [facility] DVT ppx Full code LOS 2 days Plan to discharge in: 48 Hours - Advance Directives Does patient have a Living Will: No Does patient have a Durable POA for Healthcare: Yes Time Spent Managing Pts Care (In Minutes): 60
[2025-04-18] MEDS: VANCOMYCIN 1.25 GM in NA CHLORIDE 0.9% 250 ML IVPB SCH (04:14)
[2025-04-18 04:29] LABS: Absolute Lymphocytes (CBC) 1.3 K/uL (0.7-4.9); Hematocrit 28.4 % (36.0-45.0); Hemoglobin 9.7 g/dL (12.0-15.0); MCH 29.8 pg (27.0-35.0); MCHC 34.2 g/dL (32.0-36.0); MCV 87.0 fL (80-100); MPV 7.5 fL (7.6-11.3); Nucleated RBC Absolute Count 0.0 (0-0); Nucleated Red Blood Cells % 0.0 % (0-0); RBC Red Blood Cell Count 3.27 M/uL (3.86-4.86); White Blood Count 12.20 thou/uL (4.3-10.9)
[2025-04-18 05:03] LABS: Differential Total Cells Count 100; Segmented Neutrophils 62 % (40-80)
[2025-04-18 05:04] LABS: Blood Morphology Comment NOT SEEN (NOT SEEN)
[2025-04-18 05:06] LABS: Anion Gap 9.2 mEq/L (5.0-15.0); BUN Blood Urea Nitrogen 14.0 mg/dL (7-18); Glucose Level 193.0 mg/dL (74-106); HDL Cholesterol 73.0 mg/dL (40-60); LDL Cholesterol, Calculated 70.0 mg/dL (<130); LDL Cholesterol,Calc NonReport 70.0; Magnesium 1.8 mg/dL (1.6-2.4); Potassium 4.2 mEq/L (3.5-5.1); Thyroid Stimulating Hormone 0.574 uIU/mL (0.358-3.740)
[2025-04-18 20:55] VITALS: BP 110/68; TEMP 98.7
--- NOTE | 2025-04-19 08:37 | ECHO ---
HEIGHT: 5 ft 4 in WEIGHT: 138 lb 0 oz DATE OF STUDY: 04/18/[address]: Leann Fallon MD 2-DIMENSIONAL: YES M.MODE: YES DOPPLER: YES COLOR FLOW: YES TDS: PORTABLE: YES DEFINITY: BUBBLE STUDY: DIAGNOSIS: CONGESTIVE HEART FAILURE CARDIAC HISTORY: CATHERIZATION: SURGERY: PROSTHETIC VALVE: PACEMAKER: MEASUREMENTS (cm) DIASTOLIC (NORMALS) SYSTOLIC (NORMALS) IVSd 0.9 (0.6-1.2) LA Diam 3.0 (1.9-4.0) LVEF 55-60% LVIDd 3.8 (3.5-5.7) LVIDs 2.5 (2.0-3.5) %FS 34% LVPWd 0.8 (0.6-1.2) Ao Diam 2.2 (2.0-3.7) 2 DIMENSIONAL ASSESSMENT: RIGHT ATRIUM: NORMAL LEFT ATRIUM: NORMAL RIGHT VENTRICLE: NORAML LEFT VENTRICLE: NORAML TRICUSPID VALVE: TRACE TRICUSPID REGURGITATION MITRAL VALVE: NORMAL PULMONIC VALVE: NORMAL AORTIC VALVE: NORMAL PERICARDIAL EFFUSION: NONE AORTIC ROOT: NORMAL LEFT VENTRICULAR WALL MOTION: NORMAL DOPPLER/COLOR FLOW: NORMAL COMMENTS: 1. NORMAL LEFT VENTRICULAR SYSTOLIC FUNCTION, EJECTION FRACTION 55-60%, \NORMAL WALL MOTION 2. NORMAL DIASTOLIC FUNCTION 3. NORMAL FILLING PRESSURE (RIGHT ATRIAL PRESSURE 0-5 mmHg) TECHNOLOGIST: SAUL LOVE
== END 2025-04-18 16:30 | disposition home or self-care (01) ==
LOC: ER 10:38 → INTOOBSV 14:02 → ERHOLD 14:02 → UNDOADMIN 14:11 → ERHOLD 14:11 → 2ND 16:15
PROVIDERS: ADMIT Hospitalist; ATTEND Hospitalist
DX: J18.9 Pneumonia, unspecified organism (principal); B34.9 Viral infection, unspecified; R65.20 Severe sepsis without septic shock; E86.0 Dehydration; E87.20 Acidosis, unspecified; R53.1 Weakness; R10.9 Unspecified abdominal pain; R05.9 Cough, unspecified; Z85.42 Personal history of malignant neoplasm of other parts of uterus; Z11.52 Encounter for screening for COVID-19
CPT/HCPCS: 96365; 96367; 93005; 93306; 87040 ×2; 85025 ×2; 80048; 36415; 83735; 84100; 85610; 80061; 85379; 83605 ×2; 85730; 84443; 81003; 84484 ×2; 84439; 80053; 83880; 71260; 74177; 97161; 96375; 99285; 87428; Q9967; J3370 ×2; J0692 ×3; J2270 ×6; J2405; J7050 ×2; J7030 ×4; J2919; G0378